=== PATIENT | female | born 1945 | race Caucasian/White ===

== ENCOUNTER 2023-04-28 08:20 | Outpatient (AMB) | payer BC, SELFPAY ==
--- NOTE | 2023-04-28 08:29 | A.OFFVIS_ITS ---
Intake Vital Signs 04/28/23 08:37 Height 5 ft 5 in Weight 140 lb BMI 23.3 BP 173/72 H Blood Pressure Location Lt brachial Position Sitting Pulse 62 Intake Visit Reasons: Irritable bowel syndrome Intake Note: Patient new patient for IBS. Patient cc: abdominal cramping, gassy, and constipation with some bloody BM. [employer] General Supervisor Required: No Accompanied by: Self / Same As Patient Allergies No Known Allergies Allergy (Verified 04/28/23 08:29) HPI Irritable bowel syndrome HPI Details 77-year-old female here for initial evaluation of IBS. She is referred by Nola Valladares of [facility] in [facility]. PMX Hypertension - she ?? High cholesterol - she ?? Arthrosclerotic aortic disease Arthrosclerosis of the renal arteries. 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 Colon polyps Osteoporosis Diabetic nephropathy Chronic kidney disease stage 2. Peripheral neuropathy * SURGICAL HISTORY Colonoscopy 11/10/2022-[facility]...? [facility] Appendectomy * ALLERGIES: NKDA * [employer] LABS: NONE IN OUR SYSTEM CT INCLUDED IN PCP NOTE 11/05/2022 IMPRESSION Significant arthrosclerotic calcifications.. There are significant calcifications at the origin of the left renal artery however there does appear to be good distal blood flow Evidence of old granulomatous disease. TODAY'S VISIT This problem has been for a couple of years. She will have a mucus d/c from her rectum at times. She will have CIC for 4-5 days, then she will move her bowels for a day or two. She will have hard stool followed by diarrhea. The CIC is more dominant. She has a lot of cramping. She was rx'ed bentyl but she only takes it when the cramps are very bad. It works when she has cramping. She will have a lot of bloating. The unpredictability of when she will have days that she can not leave the house is really interfering with her quality of life in her activities. SHE HAS HAD NO PRIOR testing except for colonoscopy done last year about which she was given no information. She does have a history of colon polyps that were tubular adenomas in the past with 5 year follow ups. There are no new medications before the onset of her symptoms and no new illnesses.She does not like to drink water, she drinks snapple iced tea and she does not eat much fiber. Her mother used to have bowel problems and her sister does. They do not talk much so she is uncertain exactly what kinds of problems they have. She tried Metamucil (or maybe miralax) and it did nothing. She will go home and verify which of the she has been on. She has also tried a variety of jaah-neb-fzotkop laxatives including senna, bisacodyl, MiraLax, and Colace and all these we do is give her severe cramping and not move her bowels sufficiently. I think will start her off on Linzess 145 micro g and titrate to affect her side effect. Will get some basic labs including thyroid to rule this out as a contributing factor. Also try to get records from her last colonoscopy. Return office visit in 2 weeks. [facility] Surgical History (Updated 04/28/23 @ 15:47 by SANAZ Sloan) History of section Hx of appendectomy Hx of colonoscopy Family History (Updated 04/28/23 @ 08:43 by Nancy Larsen) Brother Diabetes Father Heart attack Mother Lung cancer Social History (Updated 04/28/23 @ 08:30 by Nancy Larsen) Household Members: Spouse Alcohol intake: current Alcohol intake frequency: holidays/special occasions only Patient Tobacco Use Status: Former Tobacco user Tobacco use type: Cigarette Review of Systems Const Denies fatigue, Denies fever(s), Denies night sweats, Denies poor appetite and Denies weight loss Eyes Details: glasses Reports requires corrective lenses ENT Reports Normal hearing present, Denies dental pain, Denies dysphagia, Denies hearing loss, Denies mouth pain, Denies odynophagia, Denies throat swelling, Denies tongue swelling and Reports other (Dentition adequate) Card Reports no additional complaints Resp Reports no additional complaints GI Denies abdominal pain, Denies melena, Reports bloating, Denies hematochezia, Reports constipation, Reports GI cramping, Denies dysphagia, Denies excessive flatus, Denies early satiety, Denies heartburn, Reports diarrhea, Denies nausea, Denies odynophagia, Denies vomiting and Denies hematemesis Skin/Breast Reports dry skin, Denies pruritus, Denies lesions, Denies rash and Denies jaundice Neuro Reports Normal hearing present and Denies Abnormal speech present Endo Denies fatigue Aller/Immun Denies throat swelling and Denies tongue swelling Physical Exam Vital Signs: Last Vital Signs Pulse 62 04/28/23 08:37 BP 173/72 H 04/28/23 08:37 BMI result Body Mass Index 23.3 Const General: cooperative, no acute distress, well developed and well groomed Nutritional Appearance: average body habitus and well nourished Orientation/consciousness: oriented to person, oriented to place and oriented to time Limitations: No language barrier HEENT Head: Yes normocephalic and Yes atraumatic Eyes General: appearance normal, both eyes and all related structures Pupils: Equal, round and reactive pupils present Neck Neck: Yes normal visual inspection and Yes no lymphadenopathy Thyroid: Thyroid normal Resp Effort & Inspection: normal respiratory effort and able to speak in complete sentences Auscultation: clear to auscultation bilaterally Cardio Rate: regular rate Rhythm: regular rhythm Heart sounds: Normal, physiologic split S2 sound present Peripheral pulses: radial pulses present and posterior tibial pulses present GI Inspection: No distended and No Abdominal panniculus present Palpation (GI): Soft to palpation, nontender, no guarding, not rigid and No hepatosplenomegaly present Percussion: Yes normal to percussion Auscultation: normal bowel sounds Rectal Exam - Female: deferred Abdomen image: 1. surgical scar Skin General skin exam: no rashes or lesions noted, decreased turgor, dry skin, no jaundice, No spider nevi and no striae Rashes: no rashes Nails: normal Neuro General: oriented to person, oriented to place and oriented to time Cranial nerves: Yes Equal, round and reactive pupils present and Yes Normal hearing present Speech: No Abnormal speech present Extrem General: Yes normal to inspection, No clubbing, No cyanosis and No edema Psych Appearance: grossly normal and well kempt Mental Status: mental status grossly normal Speech and movement: Normal speech and movement present Affect: normal affect Attitude: cooperative Thought process: Normal thought process present and not confabulating Thought content: Normal thought content present Insight: Fair insight present (Psych) Judgement: Fair judgement present (Psych) Assessment & Plan Assessment & Plan (1) Irritable bowel syndrome with both constipation and diarrhea: Code(s): K58.2 - Mixed irritable bowel syndrome Plan: This problem has been for a couple of years. She will have a mucus d/c from her rectum at times. She will have CIC for 4-5 days, then she will move her bowels for a day or two. She will have hard stool followed by diarrhea. The CIC is more dominant. She has a lot of cramping. She was rx'ed bentyl but she only takes it when the cramps are very bad. It works when she has cramping. She will have a lot of bloating. The unpredictability of when she will have days that she can not leave the house is really interfering with her quality of life in her activities. SHE HAS HAD NO PRIOR testing except for colonoscopy done last year about which she was given no information. She does have a history of colon polyps that were tubular adenomas in the past with 5 year follow ups. There are no new medications before the onset of her symptoms and no new illnesses.She does not like to drink water, she drinks snapple iced tea and she does not eat much fiber. Her mother used to have bowel problems and her sister does. They do not talk much so she is uncertain exactly what kinds of problems they have. She tried Metamucil (or maybe miralax) and it did nothing. She will go home and verify which of the she has been on. She has also tried a variety of ksmk-hze-rnhmeum laxatives including senna, bisacodyl, MiraLax, and Colace and all these we do is give her severe cramping and not move her bowels sufficiently. I think will start her off on Linzess 145 micro g and titrate to affect her side effect. Will get some basic labs including thyroid to rule this out as a c ontributing factor. Also try to get records from her last colonoscopy. Return office visit in 2 weeks. Orders: Orders Comprehensive Met. Panel Today K58.2 - Mixed irritable bowel syndrome TSH reflex Free T4 Today K58.2 - Mixed irritable bowel syndrome Transglutaminase IgA Today K58.2 - Mixed irritable bowel syndrome Transglutaminase Ab IgG Today K58.2 - Mixed irritable bowel syndrome Pancreatic Elastase-1 Today K58.2 - Mixed irritable bowel syndrome C Reactive Protein Today K58.2 - Mixed irritable bowel syndrome Gliadin Ab Panel Today K58.2 - Mixed irritable bowel syndrome Medications: New sennosides (Senna Laxative) 17.2 mg (2 x 8.6 mg) PO BEDTIME 60 tabs 3RF K58.2 - Mixed irritable bowel syndrome Coding Level of Care Code New Pt Level 3 (42581) Diagnoses Irritable bowel syndrome with both constipation and diarrhea K58.2
[2023-04-28 08:37] VITALS: BP 173/72; PULSE 62; BMI 23.3
== END 2023-04-28 09:17 | disposition home or self-care (01) ==
PROVIDERS: PCP Internal Medicine; Visit Provider Nurse Practitioner
DX: K58.2 Mixed irritable bowel syndrome (principal)
CPT/HCPCS: 99203

== ENCOUNTER 2023-04-28 08:20 | Outpatient (REF) | payer MEDICARE, SELFPAY ==
[2023-04-28 11:12] LABS: Alanine Aminotransferase 30 U/L (0-31); Albumin Level 4.1 g/dL (3.5-5.0); Alkaline Phosphatase 102 U/L (39-117); Anion Gap 12 (12-20); Aspartate Amino Transferase 41 U/L (5-31); Bilirubin Total 0.4 mg/dL (0.0-1.0); Blood Urea Nitrogen 13 mg/dL (9-16); C Reactive Protein 0.35 mg/dL (< or = 0.50); Calcium 10.4 mg/dL (8.4-10.2); Carbon Dioxide 26 mmol/L (22-29); Chloride 104 mmol/L (96-108); Estimated Glomerular Filt Rate 53; Glucose Random 120 mg/dL (60-115); Potassium 4.3 mmol/L (3.3-5.1); Sodium 138 mmol/L (135-145)
[2023-04-28 11:32] LABS: TSH reflex Free T4 1.79 uIU/mL (0.32-4.0)
[2023-04-29 13:34] LABS: Transglutaminase Ab IgG <1.0 U/mL; Transglutaminase IgA <1.0 U/mL
[2023-04-29 14:23] LABS: Gliadin Deamidated IgA Ab <1.0 U/mL; Gliadin Deamidated IgG Ab <1.0 U/mL
== END 2023-04-28 08:21 | disposition home or self-care (01) ==
LOC: HO.LAB 08:20
PROVIDERS: PCP Internal Medicine; Visit Provider Nurse Practitioner
DX: K58.2 Mixed irritable bowel syndrome (principal)
CPT/HCPCS: 36415; 80053; 84443; 86140; 86258; 86364

== ENCOUNTER 2023-04-30 09:09 | Outpatient (REF) | payer MEDICARE, SELFPAY ==
[2023-05-08 17:53] LABS: Pancreatic Elastase-1 100 mcg/g
== END 2023-04-30 09:10 | disposition home or self-care (01) ==
LOC: HO.LNP 09:09
PROVIDERS: Visit Provider Nurse Practitioner
DX: K58.2 Mixed irritable bowel syndrome (principal)
CPT/HCPCS: 82656

== ENCOUNTER 2023-05-12 13:42 | Outpatient (AMB) | payer BC, SELFPAY ==
[2023-05-12 13:47] VITALS: BP 157/69; PULSE 62; BMI 24.7
--- NOTE | 2023-05-12 13:47 | A.OFFVIS_ITS ---
Intake Vital Signs 05/12/23 13:47 Height 5 ft 5 in Weight 148 lb 2.41 oz BMI 24.7 BP 157/69 H Blood Pressure Location Lt brachial Position Sitting Pulse 62 Intake Visit Reasons: Follow Up CIC Intake Note: Patient returns to in office visit today in follow up of CIC. CC:: Patient reports abdominal cramping, gassy, and nausea last Thursday. Information Assurance Analyst Required: No Accompanied by: Self / Same As Patient Allergies No Known Allergies Allergy (Verified 05/12/23 13:53) HPI Follow Up CIC HPI Details Assessment & Plan (1) Irritable bowel syndrome with both c onstipation and diarrhea: ?Code(s): K58.2 - Mixed irritable bowel syndrome ?Plan: This problem has been for a couple of years. She will have a mucus d/c from her rectum at times. She will have CIC for 4-5 days, then she will move her bowels for a day or two. She will have hard stool followed by diarrhea. The CIC is more dominant. She has a lot of cramping. She was rx'ed bentyl but she only takes it when the cramps are very bad. It works when she has cramping. She will have a lot of bloating.? The unpredictability of when she will have days that she can not leave the house is really interfering with her quality of life in her activities. SHE HAS HAD NO PRIOR testing except for colonoscopy done last year about which she was given no information.? She does have a history of colon polyps that were tubular adenomas in the past with 5 year follow ups.? There are no new medications before the onset of her symptoms and no new illnesses.She does not like to drink water, she drinks snapple iced tea and she does not eat much fiber. Her mother used to have bowel problems and her sister does.? They do not talk much so she is uncertain exactly what kinds of problems they have. She tried Metamucil (or maybe miralax) and it did nothing. She will go home and verify which of the she has been on.? She has also tried a variety of nvqz-umu-zgwkukr laxatives including senna, bisacodyl, MiraLax, and Colace and all these we do is give her severe cramping and not move her bowels sufficiently. I think will start her off on Linzess 145 micro g and titrate to affect her side effect.? Will get some basic labs including thyroid to rule this out as a contributing factor.? Also try to get records from her last colonoscopy. Return office visit in 2 weeks. ? ? ? Orders: Orders Comprehensive Met. Panel Today K58.2 - Mixed irri table bowel syndro me ? TSH reflex Free T4 Today K58.2 - Mixed irri table bowel syndro me ? Transglutaminase I gA Today K58.2 - Mixed irri table bowel syndro me ? Transglutaminase A b IgG Today K58.2 - Mixed irri table bowel syndro me ? Pancreatic Elastas e-1 Today K58.2 - Mixed irri table bowel syndro me ? C Reactive Protein Today K58.2 - Mixed irri table bowel syndro me ? Gliadin Ab Panel Today K58.2 - Mixed irri table bowel syndro me ? Medications: New Dsennosides (Senna Laxative) 17.2 mg (2 x 8.6 m g) PO BEDTIME 60 t abs 3RF K58.2 - Mixed irri table bowel syndro me ? LABS: Laboratory Tests 04/28/23 04/28/23 04/30/23 09:51 09:51 11:44 Estimated GFR 53 Calcium 10.4 H Total Bilirubin 0.4 AST 41 H ALT 30 Alkaline Phosphata se 102 C-Reactive Protein 0.35 TSH 1.79 Stool Pancreat Viri stase 100 L Tiss Transglutamin IgG <1.0 Tiss Transglutamin IgA <1.0 Anti-Gliadin IgG A b <1.0 Gliadin (Deamidat) IgA <1.0 TODAY'S VISIT She took the senna, 1 did not help, but 2 she was in the BR all day with soft stools and cramping. Not strong enough. Will progress to senna. Also possible EPI causing her gas and bloating, will start trial of creon 36 2 caps bid. JESU MCMAHON as she will be leaving in [facility] to visit family. [facility] Surgical History (Updated 04/28/23 @ 15:47 by SANAZ Sloan) History of section Hx of colonoscopy Hx of appendectomy Family History (Updated 04/28/23 @ 08:43 by Nancy Larsen) Brother Diabetes Father Heart attack Mother Lung cancer Social History (Updated 04/28/23 @ 08:30 by Nancy Larsen) Household Members: Spouse Alcohol intake: current Alcohol intake frequency: holidays/special occasions only Patient Tobacco Use Status: Former Tobacco user Tobacco use type: Cigarette Review of Systems Const Denies fatigue, Denies fever(s), Denies night sweats, Denies poor appetite and Denies weight loss Eyes Details: glasses Reports requires corrective lenses ENT Reports Normal hearing present, Denies dental pain, Denies dysphagia, Denies hearing loss, Denies mouth pain, Denies odynophagia, Denies throat swelling, Denies tongue swelling and Reports other (Dentition adequate) Card Reports no additional complaints Resp Reports no additional complaints GI Denies abdominal pain, Denies melena, Reports bloating, Denies hematochezia, Reports constipation, Denies GI cramping, Denies dysphagia, Reports excessive flatus, Denies early satiety, Denies heartburn, Reports diarrhea, Denies nausea, Denies odynophagia, Denies vomiting and Denies hematemesis Skin/Breast Denies pruritus, Denies lesions, Denies rash and Denies jaundice Neuro Reports Normal hearing present and Denies Abnormal speech present Endo Denies fatigue Aller/Immun Denies throat swelling and Denies tongue swelling Physical Exam Vital Signs: Last Vital Signs Pulse 62 05/12/23 13:47 BP 157/69 H 05/12/23 13:47 BMI result Body Mass Index 24.7 Const General: cooperative, no acute distress, well developed and well groomed Nutritional Appearance: average body habitus and well nourished Orientation/consciousness: oriented to person, oriented to place and oriented to time Limitations: No language barrier HEENT Head: Yes normocephalic and Yes atraumatic Eyes General: appearance normal, both eyes and all related structures Pupils: Equal, round and reactive pupils present Neck Neck: Yes normal visual inspection and Yes no lymphadenopathy Thyroid: Thyroid normal Resp Effort & Inspection: normal respiratory effort and able to speak in complete sentences Auscultation: clear to auscultation bilaterally Cardio Rate: regular rate Rhythm: regular rhythm Heart sounds: Normal, physiologic split S2 sound present Peripheral pulses: radial pulses present and posterior tibial pulses present GI Inspection: No distended and No Abdominal panniculus present Palpation (GI): Soft to palpation, nontender, no guarding, not rigid and No hepatosplenomegaly present Percussion: Yes normal to percussion Auscultation: normal bowel sounds Rectal Exam - Female: deferred Skin General skin exam: no rashes or lesions noted, turgor normal, skin not dry, no jaundice, No spider nevi and no striae Rashes: no rashes Nails: normal Neuro General: oriented to person, oriented to place and oriented to time Cranial nerves: Yes Equal, round and reactive pupils present and Yes Normal hearing present Speech: No Abnormal speech present Extrem General: Yes normal to inspection, No clubbing, No cyanosis and No edema Psych Appearance: grossly normal and well kempt Mental Status: mental status grossly normal Speech and movement: Normal speech and movement present Affect: normal affect Attitude: cooperative Thought process: Normal thought process present and not confabulating Thought content: Normal thought content present Insight: Fair insight present (Psych) Judgement: Fair judgement present (Psych) Assessment & Plan Assessment & Plan (1) Exocrine pancreatic insufficiency: Code(s): K86.81 - Exocrine pancreatic insufficiency Plan: She took the senna, 1 did not help, but 2 she was in the BR all day with soft stools and cramping. Not strong enough. Will progress to senna. Also possible EPI causing her gas and bloating, will start trial of creon 36 2 caps bid. ROV TBD as she will be leaving in [facility] to visit family. (2) Irritable bowel syndrome with both constipation and diarrhea: Code(s): K58.2 - Mixed irritable bowel syndrome Medications: New ciizjn-mesgtwou-zfzedsg 36,000-114,000- 180,000 unit (Creon) administer with meals and/or snacks 2 caps PO BID 120 caps 3RF K86.81 - Exocrine pancreatic insufficiency bisacodyl (Dulcolax (bisacodyl)) 10 mg (2 x 5 mg) PO BEDTIME 4 tabs 0RF 2 days Discontinued sennosides Discontinued Reason: Doctor's Order 17.2 mg (2 x 8.6 mg) PO BEDTIME 60 tabs 3RF K58.2 - Mixed irritable bowel syndrome Coding Level of Care Code Est Pt Level 3 (74713) Diagnoses Exocrine pancreatic insufficiency K86.81 Irritable bowel syndrome with both constipation and diarrhea K58.2
== END 2023-05-12 14:12 | disposition home or self-care (01) ==
PROVIDERS: PCP Internal Medicine; Visit Provider Nurse Practitioner
DX: K86.81 Exocrine pancreatic insufficiency (principal); K58.2 Mixed irritable bowel syndrome
CPT/HCPCS: 99213

== ENCOUNTER → 2023-05-12 13:42 | Outpatient (BNVA) | payer BC, SELFPAY | PROVIDERS: PCP Internal Medicine; Visit Provider Nurse Practitioner ==

== ENCOUNTER 2024-02-22 13:58 | Outpatient (AMB) | payer BC, SELFPAY ==
--- NOTE | 2024-02-22 14:12 | A.OFFVIS_ITS ---
Vital Signs 02/22/24 14:15 Height 5 ft 5 in Weight 156 lb 1.396 oz BMI 26.0 BP 144/58 H Blood Pressure Location Rt brachial Position Sitting Pulse 70 Pulse Source Pulse Oximeter Intake Visit Reasons: Type 2 DM/lvm Intake Note: New patient present today for T2DM, referred by PCP. Patient receives Carissa 3 supplies through: Pharmacy Last Diabetic Eye exam: Due for an exam, approx 2 years Last Podiatry Visit: Does not see a Accountancy Professor Random Glucose: 249 mg/dl HgA1C: 8.1% Cigarette Making Machine Catcher Required: No Accompanied by: Self / Same As Patient Allergies No Known Allergies Allergy (Verified 02/22/24 14:16) Medication List - Last Reconciled 02/22/24 by Yahaira Kwan PA-C atorvastatin 40 mg PO DAILY blood-glucose sensor (FreeStyle Carissa 3 Sensor device) As directed insulin aspart U-100 (Novolog U-100 Insulin aspart) subcut insulin glargine (Lantus Solostar U-100 Insulin) 17 units subcut lactulose 20 grams (30 mL) PO BEDTIME [id number] 36,000-114,000- 180,000 unit (Creon) 2 caps PO BID losartan 25 mg PO DAILY sertraline 25 mg PO DAILY trazodone 200 mg PO BEDTIME PRN HPI HPI Type 2 DM/lvm: Details: Patient is a 78-year-old female who presents today for a new patient visit regarding her type 1 diabetes. She has a significant past medical history of anxiety, depression, hyperlipidemia, hypertension, CKD stage 3, type 1 diabetes, exocrine pancreatic insufficiency and osteoporosis. Endo: She is a type 1 diabetic diagnosed about 40 years ago. She did follow with the [facility] when she was initially diagnosed. She states that she was previously following with [facility] the endocrinology but was not seen in more than 1 year and told that she could no longer be a patient there. She has been having issues with her insurance and was previously on the omnipod pump and liked this. She states that her insurance older it would be 200 dollars to have this in she cannot afford that. She is on lantus 17 units and novolog sliding scale. Her A1c today is 8.1. Her CGM download shows usage 97% with a average glucose of 170 and a 35% variable 62% in range, 25% high, 12% very high and 1% low. Her cholesterol is managed with atorvastatin. She is on an Arb. She sta malik that reduce renal function is her only complication associated with her diabetes. She has not noticed peripheral neuropathy. She does check her feet regularly. She does not follow with a shift foreman. She is overdue for an ophthalmology exam and has an appointment pending but denies any history of retinopathy. -most of her hives are directly related to lunch and dinner. Her sliding scale is 150 no novolog 150-200 2 units 201-250 4 units 251-300 6 units 301-350 8 units 351-400 10 units CV: Bp today is a 144/58. She is on losartan 25 mg. We discussed that her blood pressure is elevated today but she states at home they are normal and it is normally elevated in the doctor's office. Her doctor often has to recheck her blood pressure multiple times in the office. She denies any chest pains or shortness of breath. Cannot recall her last cholesterol test are like. She is on atorvastatin 40 mg. No myalgias. [facility] Medical History (Updated 02/22/24 @ 14:47 by Yahaira Kwan PA-C) Dyslipidemia Type 1 diabetes mellitus with diabetic nephropathy, with long-term current use of insulin Surgical History History of section Hx of colonoscopy Hx of appendectomy Family History Brother Diabetes Father Heart attack Mother Lung cancer Social History Household Members: Spouse Alcohol intake: current Alcohol intake frequency: holidays/special occasions only Patient Tobacco Use Status: Former Tobacco user Tobacco use type: Cigarette Physical Exam Vital Signs: Last Vital Signs Pulse 70 02/22/24 14:15 BP 144/58 H 02/22/24 14:15 BMI result Body Mass Index 26.0 Const Orientation/consciousness: patient oriented x3 HEENT Ears: hearing grossly normal bilaterally Neck Thyroid: Thyroid normal Lymphatic: no lymphadenopathy noted Resp Auscultation: clear to auscultation bilaterally Cardio Rate: regular rate Rhythm: regular rhythm Heart sounds: S1 normal heart sound present and S2 normal heart sound present Skin General skin exam: no rashes or lesions noted Neuro General: patient oriented x3, gait normal and no focal motor deficits Extrem Other: DP pulses 2+. sensation to monofilament and vibratory intact. General: Yes normal to inspection and Yes capillary refill normal Results AMB Hemoglobin A1c AMB Hemoglobin A1c 8.1 % Last Edit by LEONARD Cooper on 02/22/24 14:33 Results Reviewed Results Reviewed: Laboratory Tests 04/28/23 09:51 Sodium 138 Potassium 4.3 Chloride 104 Carbon Dioxide 26 Anion Gap 12 BUN 13 Creatinine 1.01 Estimated GFR 53 Random Glucose 120 H Calcium 10.4 H Total Bilirubin 0.4 AST 41 H ALT 30 Alkaline Phosphatase 102 C-Reactive Protein 0.35 TSH 1.79 Assessment & Plan Assessment & Plan (1) Type 1 diabetes mellitus with diabetic nephropathy, with long-term current use of insulin: Code(s): E10.21 - Type 1 diabetes mellitus with diabetic nephropathy Category: Medical Plan: I will increase the sliding scale. Continue the Lantus. I have referred her to our health promotion educator to discuss pumps as that is her goal. She will reach out to her insurance to see about coverage. (2) Chronic kidney disease, stage 2 (mild): Code(s): N18.2 - Chronic kidney disease, stage 2 (mild) Category: Medical Plan: Advised to avoid NSAIDs. Will monitor. Does not follow with Nephrology. (3) Hypertension: Code(s): I10 - Essential (primary) hypertension Category: Medical Qualifiers: Hypertension type: primary hypertension Qualified Code(s): I10 - Essential (primary) hypertension Plan: Elevated today above goal. Patient will monitor her blood pressures at home and will have a short-term follow-up with her PCP. (4) Dyslipidemia: Code(s): E78.5 - Hyperlipidemia, unspecified Category: Medical Plan: Lipids and LFTs ordered. Plan She will contact me if she to be seen sooner otherwise three-month follow-up with Dr. Banegas. Patient understands and agrees with the plan. Orders: Orders AMB Hemoglobin A1c Today E10.9 - Type 1 diabetes mellitus without complications Microalbumin, Random (w Creat) Today E10.21 - Type 1 diabetes mellitus with diabetic nephropathy, E78.5 - Hyperlipidemia, unspecified, I10 - Essential (primary) hypertension, N18.2 - Chronic kidney disease, stage 2 (mild) Comprehensive [place]. Panel Fast Today E10.21 - Type 1 diabetes mellitus with diabetic nephropathy, E78.5 - Hyperlipidemia, unspecified, I10 - Essential (primary) hypertension, N18.2 - Chronic kidney disease, stage 2 (mild) Hemoglobin A1c Today E10.21 - Type 1 diabetes mellitus with diabetic nephropathy, E78.5 - Hyperlipidemia, unspecified, I10 - Essential (primary) hypertension, N18.2 - Chronic kidney disease, stage 2 (mild) Lipid Panel Today E10.21 - Type 1 diabetes mellitus with diabetic nephropathy, E78.5 - Hyperlipidemia, unspecified, I10 - Essential (primary) hypertension, N18.2 - Chronic kidney disease, stage 2 (mild) Coding Level of Care Code New Pt Level 4 (17542) Complex EM visit Add On G2211 Diagnoses Type 1 diabetes mellitus with diabetic nephropathy, with long-term current use of insulin E10.21 Chronic kidney disease, stage 2 (mild) N18.2 Primary hypertension I10 Hypertension type: primary hypertension Dyslipidemia E78.5
[2024-02-22 14:15] VITALS: BP 144/58; PULSE 70; BMI 26.0
[2024-02-22 14:29] LABS: Glucose, Whole Blood 249 mg/dL (60-115)
== END 2024-02-22 15:06 | disposition home or self-care (01) ==
PROVIDERS: PCP Internal Medicine; Visit Provider Physician Assistant
DX: E10.21 Type 1 diabetes mellitus with diabetic nephropathy (principal); I12.9 Hypertensive chronic kidney disease with stage 1 through stage 4 chronic kidney disease, or unspecified chronic kidney disease; N18.2 Chronic kidney disease, stage 2 (mild); E78.5 Hyperlipidemia, unspecified; E10.9 Type 1 diabetes mellitus without complications
CPT/HCPCS: 99204

== ENCOUNTER → 2024-02-22 13:58 | Outpatient (BNVA) | payer BC, SELFPAY | PROVIDERS: PCP Internal Medicine; Visit Provider Physician Assistant | DX: E10.22 Type 1 diabetes mellitus with diabetic chronic kidney disease (principal); E10.21 Type 1 diabetes mellitus with diabetic nephropathy; I12.9 Hypertensive chronic kidney disease with stage 1 through stage 4 chronic kidney disease, or unspecified chronic kidney disease; E78.5 Hyperlipidemia, unspecified; N18.2 Chronic kidney disease, stage 2 (mild) | CPT/HCPCS: 82947; 83036 ==

== ENCOUNTER 2024-02-29 10:15 | Outpatient (REF) | payer BC, SELFPAY ==
[2024-02-29 11:42] LABS: Estimated Average Glucose 177 mg/dL; Hemoglobin A1c % 7.8 % (<6.0)
[2024-02-29 12:16] LABS: Creatinine Urine 32.02 mg/dL; Microalbumin Urine < 5.0 mg/L
[2024-02-29 12:22] LABS: Alanine Aminotransferase 20 U/L (0-31); Albumin Level 3.9 g/dL (3.5-5.0); Alkaline Phosphatase 93 U/L (39-117); Anion Gap 12 (12-20); Aspartate Amino Transferase 29 U/L (5-31); Bilirubin Total 0.5 mg/dL (0.0-1.0); Blood Urea Nitrogen 14 mg/dL (9-16); Calcium 9.8 mg/dL (8.4-10.2); Carbon Dioxide 25 mmol/L (22-29); Chloride 103 mmol/L (96-108); Cholesterol 196 mg/dL (<200); Estimated Glomerular Filt Rate 59; Glucose Fasting 168 mg/dL (60-99); HDL Cholesterol 98 mg/dL (>40); LDL Cholesterol Calculated 87 mg/dL (<100); Potassium 4.4 mmol/L (3.3-5.1); Sodium 136 mmol/L (135-145); Total Protein 7.6 g/dL (6.5-8.0); Triglycerides 58 mg/dL (<150)
== END 2024-02-29 10:16 | disposition home or self-care (01) ==
LOC: HO.WFDLDS 10:15
PROVIDERS: Visit Provider Physician Assistant
DX: E78.5 Hyperlipidemia, unspecified (principal); E10.21 Type 1 diabetes mellitus with diabetic nephropathy; N18.2 Chronic kidney disease, stage 2 (mild); I10 Essential (primary) hypertension
CPT/HCPCS: 36415; 80053; 80061; 82043; 82570; 83036

== ENCOUNTER 2024-03-07 09:39 | Outpatient (AMB) | payer BC, SELFPAY ==
--- NOTE | 2024-03-07 10:27 | A.OFFVIS_ITS ---
Intake Intake Visit Reasons: with Judith to discuss pumps/CONFIRMED Civil Engineering Project Manager Required: No Accompanied by: Self / Same As Patient Allergies No Known Allergies Allergy (Verified 02/22/24 14:16) HPI Comprehensive Diabetes Asmnt Most Recent Diabetes Results: Microalb/Creat Ratio TNP 02/29/24 Cholesterol 196 mg/dL (<200) 02/29/24 HDL Cholesterol 98 mg/dL (>40) 02/29/24 Triglycerides 58 mg/dL (<150) 02/29/24 Creatinine 0.92 mg/dL (0.5-1.4) 02/29/24 Blood Urea Nitrogen 14 mg/dL (9-16) 02/29/24 Sodium 136 mmol/L (135-145) 02/29/24 Potassium 4.4 mmol/L (3.3-5.1) 02/29/24 Chloride 103 mmol/L (96-108) 02/29/24 Carbon Dioxide 25 mmol/L (22-29) 02/29/24 Calcium 9.8 mg/dL (8.4-10.2) 02/29/24 AST 29 U/L (5-31) 02/29/24 ALT 20 U/L (0-31) 02/29/24 Total Protein 7.6 g/dL (6.5-8.0) 02/29/24 Albumin 3.9 g/dL (3.5-5.0) 02/29/24 [facility] Medical History (Updated 02/22/24 @ 14:47 by Yahaira Kwan PA-C) Dyslipidemia Type 1 diabetes mellitus with diabetic nephropathy, with long-term current use of insulin Surgical History History of section Hx of colonoscopy Hx of appendectomy Family History Brother Diabetes Father Heart attack Mother Lung cancer Social History Household Members: Spouse Alcohol intake: current Alcohol intake frequency: holidays/special occasions only Patient Tobacco Use Status: Former Tobacco user Tobacco use type: Cigarette Assessment & Plan Assessment & Plan (1) Type 1 diabetes mellitus with diabetic nephropathy, with long-term current use of insulin: Code(s): E10.21 - Type 1 diabetes mellitus with diabetic nephropathy Plan: Pump Assessment: Type of DM: Type 1 Dx at age: In her 32 Previous DKA: Denies Current Insulin Rx: MDI Lantus 17 units daily Novolog S/S 150 no novolog 150-200 4 units 201-250 6 units 251-300 8 units 301-350 10 units 351-400 12 units Patient takes insulin as prescribed: yes Patient? checks BG freestyle Carissa 2 Downloaded meter today? Yes Patient's average glucose for the past 2 weeks 155 mg/dL Above target 25% At target 66% Below target 2% Encourage patient to take 2 units of insulin before meals when glucose is within target. Instructed patient not to use sliding scale post meal if she is trying to corre ct high blood sugar and not eating Patient? reports glycemic control as: Good Most recent Hgb A1C: 7.8% February 2024 Frequency of low BG: Several times a week Low BG treatment: Fruit juice Frequency of high BG: daily Does patient check Ketones? No Reviewed with patient the rules on how to test for ketones, requested prescription for ketone strips be sent to patient's pharmacy Has pt been on a pump in the past? Yes, Omnipod Hanna Reviewed insulin pump basics today with Patient. Explained pros and cons of insulin pumps. Showed pt various pumps, infusion sets, and cgms currently available. Reviewed need to wear pump 24/7 and need to change infusion set every 3 days. Also stressed importance of frequent BG checks, 4x daily minimum or use pump that is integrated with CGM.? TDD:35 Patient demonstrated motivation for continued insulin pump education and understands the need to complete education prior to starting insulin pump for best outcome. Will follow up for continued education. Next visit will include review of Advanced Carb Counting. Message sent to both [employer] and [employer] regarding out of pocket cost of insulin pump Portions of this note were created using voice recognition software, please excuse any words or phrases that may have been misinterpreted. Patient Instructions: DIABETES PROBLEMS HOMECARE INSTRUCTIONS? for High Blood Sugar and When to Test for Ketones Hyperglycemia is the technical term for high blood glucose (blood sugar). High blood sugar happens when the body has too little insulin or when the body can't use insulin properly. What causes hyperglycemia? A number of things can cause hyperglycemia: * If you have type 1, you may not have given yourself enough insulin. ? If you have type 2, your body may have enough insulin, but it is not as effective as it should be. * You ate more than planned or exercised less than planned. * You have stress from an illness, such as a cold or flu. * You have other stress, such as family conflicts or school or dating problems. How to lower your blood sugar level. ? Take medications as directed by physician. ? Drink extra water or noncaffeinated, nonsugared drinks to prevented hydration. ? Exercise if you are not sick However, if your blood sugar is above 250 mg/dl, check your urine for ketones. If you have ketones, do not exercise Exercising when ketones are present may make your blood sugar level go even higher. You'll need to work with your doctor to find the safest way for you to lower your blood sugar level. Regularly check blood sugar or urine for sugar and acetone during illness. Diabetic ketoacidosis (DKA) Is serious condition that can lead to diabetic coma (passing out for a long time) or even . When your cells don't get the glucose they need for energy, your body begins to burn fat for energy, which produces ketones. Ketones are chemicals that the body creates when it breaks down fat to use for energy. The body does this when it doesn?t have enough insulin to use glucose, the body?s normal source of energy. When ketones build up in the blood, they make it more acidic. They are a warning sign that your diabetes is out of control or that you are getting sick. Symptoms of Diabetic Ketoacidosis (DKA) ? DKA usually develops slowly. But when vomiting occurs, this life- threatening condition can develop in a few hours. Early symptoms include the following: ? Thirst or a very dry mouth ? Frequent urination ? High blood glucose (blood sugar) levels ? High levels of ketones in the urine ? Then, other symptoms appear: ? Constantly feeling tired ? Dry or flushed skin ? Nausea, vomiting, or abdominal pain ? (Vomiting can be caused by many illnesses, not just ketoacidosis. If vomiting continues for more than 2 hours, contact your health care provider.) ? Difficulty breathing ? Fruity odor on breath ? A hard time paying attention, or confusion When should you test for ketones? It is advisable to check for ketones under the following conditions when: Your blood glucose is higher than 250mg/dl. Feeling nauseated, throwing up, or have pains in your abdominal region. Have a cold or flu. Have general body fatigue. Feel thirsty or have a very dry mouth. Have flushed skin. Have a fruity breath or a hard time breathing. You feel perplexed or in fog. How to Test Urine for Ketones You can detect ketones with a simple urine test using a test strip, similar to a blood testing strip. Ask your health care provider when and how you should test for ketones. Many experts advise to check your urine for ketones when your blood glucose is more than 250 mg/dl. When you are ill (when you have a cold or the flu, for example), check for ketones every 4 to 6 hours. And check every 4 to 6 hours when your blood sugar is more than 250 mg/dl. Also, check for ketones when you have any symptoms of DKA. How to lower your blood sugar level. ? Take medications as directed by physician. ? Drink extra water or noncaffeinated, nonsugared drinks to prevented hydration. ? Exercise if you are not sick However, if your blood sugar is above 250 mg/dl, check your urine for ketones. If you have ketones, do not exercise Exercising when ketones are present may make your blood sugar level go even higher. You'll need to work with your doctor to find the safest way for you to lower your blood sugar level. Regularly check blood sugar or urine for sugar and acetone during illness Coding Level of Care Code Est Pt Level 1 (47213) Diagnoses Type 1 diabetes mellitus with diabetic nephropathy, with long-term current use of insulin E10.21
== END 2024-03-07 10:31 | disposition home or self-care (01) ==
PROVIDERS: PCP Internal Medicine; Visit Provider Registered Nurse Diabetes Educator
DX: E10.21 Type 1 diabetes mellitus with diabetic nephropathy (principal)

== ENCOUNTER → 2024-03-07 09:39 | Outpatient (BNVA) | payer BC, SELFPAY | PROVIDERS: PCP Internal Medicine; Visit Provider Registered Nurse Diabetes Educator | DX: Z46.81 Encounter for fitting and adjustment of insulin pump (principal); E10.21 Type 1 diabetes mellitus with diabetic nephropathy | CPT/HCPCS: 99211 ==

== ENCOUNTER 2024-03-28 12:45 | Outpatient (AMB) | payer BC, SELFPAY ==
--- NOTE | 2024-03-28 13:41 | MHC.AMDMED ---
Intake Intake Visit Reasons: 60 CARB COUNT/CONFIRMED Obstetrics Gynecology Physician Required: No Accompanied by: Self / Same As Patient Allergies No Known Allergies Allergy (Verified 02/22/24 14:16) HPI Comprehensive Diabetes Asmnt Most Recent Diabetes Results: Microalb/Creat Ratio TNP 02/29/24 Cholesterol 196 mg/dL (<200) 02/29/24 HDL Cholesterol 98 mg/dL (>40) 02/29/24 Triglycerides 58 mg/dL (<150) 02/29/24 Creatinine 0.92 mg/dL (0.5-1.4) 02/29/24 Blood Urea Nitrogen 14 mg/dL (9-16) 02/29/24 Sodium 136 mmol/L (135-145) 02/29/24 Potassium 4.4 mmol/L (3.3-5.1) 02/29/24 Chloride 103 mmol/L (96-108) 02/29/24 Carbon Dioxide 25 mmol/L (22-29) 02/29/24 Calcium 9.8 mg/dL (8.4-10.2) 02/29/24 AST 29 U/L (5-31) 02/29/24 ALT 20 U/L (0-31) 02/29/24 Total Protein 7.6 g/dL (6.5-8.0) 02/29/24 Albumin 3.9 g/dL (3.5-5.0) 02/29/24 [facility] Medical History (Updated 02/22/24 @ 14:47 by Yahaira Kwan PA-C) Dyslipidemia Type 1 diabetes mellitus with diabetic nephropathy, with long-term current use of insulin Surgical History History of section Hx of colonoscopy Hx of appendectomy Family History Brother Diabetes Father Heart attack Mother Lung cancer Social History Household Members: Spouse Alcohol intake: current Alcohol intake frequency: holidays/special occasions only Patient Tobacco Use Status: Former Tobacco user Tobacco use type: Cigarette Assessment & Plan Assessment & Plan (1) Type 1 diabetes mellitus with diabetic nephropathy, with long-term current use of insulin: Code(s): E10.21 - Type 1 diabetes mellitus with diabetic nephropathy Plan: Carb Counting Basic Patient presents for appointment carbohydrate counting education. Reviewed the basic principles of carbohydrate counting.? Insulin to carb ratio, and insulin sensitivity factor calculated based on rule of 450 for insulin to carb ratio, and rule of 1500 for insulin sensitivity factor. Instructed patient on the importance of accurate calculation of the amount of carbs per meal for optimal glucose control Reviewed how to calculate mealtime bolus with insulin to carb ratio Reviewed how to calculate correction dose with insulin sensitivity factor Patient's TDD estimate 35 Units Insulin to Carbohydrate ratio: 1:13 Correction factor: 1:43 Patient given healthy plate handout, for resource for carbohydrate counting Encourage patient to fill out food logs, estimating carbohydrates at meals, noting glucose number prior to meal, and how many units of insulin taken prior to meals Pt able to calculated needed insulin based on estimated carbohydrate content Boluscalc selene downloaded on to patient's cell phone Reviewed with patient how to calculate for meals and corrections using Boluscalc selene Patient will also need to transition from Carissa 3 sensor to Dexcom G7 sensor, patient will call certified lactation educator when she puts on last Carissa 3 sensor so new prescription can be sent to patient's pharmacy Instructed patient that there may need to be adjustment to insulin to carb ratio and sensitivity factor based on blood glucose trends. reviewed patient's glucose data from Carissa 3 sensor average glucose for the past 14 days 152 mg/dL patient above target 29% patient at target 68% patient below target 3% patient is experiencing overnight hypoglycemia, recommended to patient she decrease Lantus 17 units to Lantus 14 units in 2 or 3 days if still experiencing overnight hypoglycemia contact certified lactation educator for further adjustment reviewed with patient how to use rule of 15s to treat hypoglycemia patient reports she keeps a small can of Coke next to her bed to treat overnight hypoglycemia patient also carries crackers and small can of Coke in her purse instructed patient not to use food that has protein or fat, such as peanut butter crackers to treat hypoglycemia. after treating hypoglycemia with Coke, use peanut butter crackers as snack to keep blood sugar stable Portions of this note were created using voice recognition software, please excuse any words or phrases that may have been misinterpreted. Patient Instructions: Reduce Lantus to 14 unit daily If still experiencing overnight hypoglycemia contact certified lactation educator Coding Level of Care Code Est Pt Level 1 (95655) Diagnoses Type 1 diabetes mellitus with diabetic nephropathy, with long-term current use of insulin E10.21
== END 2024-03-28 13:47 | disposition home or self-care (01) ==
PROVIDERS: PCP Internal Medicine; Visit Provider Registered Nurse Diabetes Educator
DX: E10.21 Type 1 diabetes mellitus with diabetic nephropathy (principal)

== ENCOUNTER → 2024-03-28 12:45 | Outpatient (BNVA) | payer BC, SELFPAY | PROVIDERS: PCP Internal Medicine; Visit Provider Registered Nurse Diabetes Educator | DX: E10.21 Type 1 diabetes mellitus with diabetic nephropathy (principal) | CPT/HCPCS: 99211 ==

== ENCOUNTER 2024-05-11 14:36 | Outpatient (AMB) | payer BC, SELFPAY ==
--- NOTE | 2024-05-11 14:41 | MHC.AMDMED ---
Intake Intake Visit Reasons: Tandem Allergies No Known Allergies Allergy (Verified 02/22/24 14:16) HPI Comprehensive Diabetes Asmnt Most Recent Diabetes Results: Microalb/Creat Ratio TNP 02/29/24 Cholesterol 196 mg/dL (<200) 02/29/24 HDL Cholesterol 98 mg/dL (>40) 02/29/24 Triglycerides 58 mg/dL (<150) 02/29/24 Creatinine 0.92 mg/dL (0.5-1.4) 02/29/24 Blood Urea Nitrogen 14 mg/dL (9-16) 02/29/24 Sodium 136 mmol/L (135-145) 02/29/24 Potassium 4.4 mmol/L (3.3-5.1) 02/29/24 Chloride 103 mmol/L (96-108) 02/29/24 Carbon Dioxide 25 mmol/L (22-29) 02/29/24 Calcium 9.8 mg/dL (8.4-10.2) 02/29/24 AST 29 U/L (5-31) 02/29/24 ALT 20 U/L (0-31) 02/29/24 Total Protein 7.6 g/dL (6.5-8.0) 02/29/24 Albumin 3.9 g/dL (3.5-5.0) 02/29/24 [facility] Medical History (Updated 02/22/24 @ 14:47 by Yahaira Kwan PA-C) Dyslipidemia Type 1 diabetes mellitus with diabetic nephropathy, with long-term current use of insulin Surgical History History of section Hx of colonoscopy Hx of appendectomy Family History Brother Diabetes Father Heart attack Mother Lung cancer Social History Household Members: Spouse Alcohol intake: current Alcohol intake frequency: holidays/special occasions only Patient Tobacco Use Status: Former Tobacco user Tobacco use type: Cigarette Assessment & Plan Assessment & Plan (1) Type 1 diabetes mellitus with diabetic nephropathy, with long-term current use of insulin: Code(s): E10.21 - Type 1 diabetes mellitus with diabetic nephropathy Plan: Patient presents for pump training for T-Slim X2 pump and CGM training today. The following topics were reviewed today: -Pump therapy basic concepts: Basal/bolus, insulin to carb ratio, correction factor, insulin on board -Device settings: Bluetooth/mobile connection (if applicable), correct date and time, sound volume -CGM settings(if integrated system): CGM graft views and trend arrows, alerts and alarms, Start new sensor ??? High Alert: 200 mg/dl ??? Low Alert: 70 mg/dl Insulin delivery settings Program insulin to carb ratio, correction factor, target blood glucose, suspend or resume insulin delivery, bolus limit and basal limit settings Instructed patient to only use room temperature insulin, how to load cartridge or fill pod, with insulin. Fill tubing and cannula (if applicable) Inserting infusion set or starting pod Troubleshooting after starting new pod or inserting new insulin set: Occlusion, adhesive tape sensitivity, redness Check BG 2 hours after site change Safety information: Importance of a backup plan, for manual injections, proper prescriptions and emergency supplies ketone strips, and rules for testing for ketones Patient was able to insert insulin set today without difficulty. Patient understands the basic concepts of pump therapy, how to give insulin for meals and snacks, how to troubleshoot for hyper and hypoglycemia. Setting verified by [facility] Basal rate(s) (units/hour) : 12 AM? to 12 AM? 0.5 units / hr Bolus setting Insulin Carbohydrate Ratio (s) 12 AM? to 12 AM?? 1:17 Correction Factor / Sensitivity Factor 12 AM? to 12 AM? 1:58 Active Insulin Time:? 5 hours Target(s): 12 AM? to 12 AM? 110 mg/dL Patient will follow up with [facility] as instructed Patient will contact [facility] with questions or concerns, patient given IT number to support in any technical issues related to insulin pump Portions of this note were created using voice recognition software, please excuse any words or phrases that may have been misinterpreted. Medications: Discontinued insulin aspart U-100 (Novolog U-100 Insulin aspart) Discontinued Reason: Insurance Denied up to 40 units daily by continuous insulin pump subcutaneously daily; 30 days 20 mL 6RF E10.21 - Type 1 diabetes mellitus with diabetic nephropathy Patient Instructions: Patient will follow-up with school vocational educator in 1 week Coding Level of Care Code Est Pt Level 1 (53920) Diagnoses Type 1 diabetes mellitus with diabetic nephropathy, with long-term current use of insulin E10.21
== END 2024-05-11 16:34 | disposition home or self-care (01) ==
PROVIDERS: PCP Internal Medicine; Visit Provider Registered Nurse Diabetes Educator
DX: E10.21 Type 1 diabetes mellitus with diabetic nephropathy (principal)

== ENCOUNTER → 2024-05-11 14:36 | Outpatient (BNVA) | payer BC, SELFPAY | PROVIDERS: PCP Internal Medicine; Visit Provider Registered Nurse Diabetes Educator | DX: Z46.81 Encounter for fitting and adjustment of insulin pump (principal); E10.21 Type 1 diabetes mellitus with diabetic nephropathy | CPT/HCPCS: 99211 ==

== ENCOUNTER 2024-05-19 07:47 | Outpatient (AMB) | payer BC, SELFPAY ==
--- NOTE | 2024-05-19 08:47 | MHC.AMDMED ---
Intake Intake Visit Reasons: 60 MIN Sales Enablement Consultant Required: No Accompanied by: Self / Same As Patient Allergies No Known Allergies Allergy (Verified 02/22/24 14:16) HPI Comprehensive Diabetes Asmnt Most Recent Diabetes Results: Microalb/Creat Ratio TNP 02/29/24 Cholesterol 196 mg/dL (<200) 02/29/24 HDL Cholesterol 98 mg/dL (>40) 02/29/24 Triglycerides 58 mg/dL (<150) 02/29/24 Creatinine 0.92 mg/dL (0.5-1.4) 02/29/24 Blood Urea Nitrogen 14 mg/dL (9-16) 02/29/24 Sodium 136 mmol/L (135-145) 02/29/24 Potassium 4.4 mmol/L (3.3-5.1) 02/29/24 Chloride 103 mmol/L (96-108) 02/29/24 Carbon Dioxide 25 mmol/L (22-29) 02/29/24 Calcium 9.8 mg/dL (8.4-10.2) 02/29/24 AST 29 U/L (5-31) 02/29/24 ALT 20 U/L (0-31) 02/29/24 Total Protein 7.6 g/dL (6.5-8.0) 02/29/24 Albumin 3.9 g/dL (3.5-5.0) 02/29/24 [facility] Medical History (Updated 02/22/24 @ 14:47 by Yahaira Kwan PA-C) Dyslipidemia Type 1 diabetes mellitus with diabetic nephropathy, with long-term current use of insulin Surgical History History of section Hx of colonoscopy Hx of appendectomy Family History Brother Diabetes Father Heart attack Mother Lung cancer Social History Household Members: Spouse Alcohol intake: current Alcohol intake frequency: holidays/special occasions only Patient Tobacco Use Status: Former Tobacco user Tobacco use type: Cigarette Assessment & Plan Assessment & Plan (1) Type 1 diabetes mellitus with diabetic nephropathy, with long-term current use of insulin: Code(s): E10.21 - Type 1 diabetes mellitus with diabetic nephropathy Plan: Patient presents for pump training for T-Slim X2 pump and CGM training today. The following topics were reviewed today: -CGM settings(if integrated system): CGM graft views and trend arrows, alerts and alarms, Start new sensor ??? High Alert: 200 mg/dl ??? Low Alert: 70 mg/dl Patient was unable to load cartridge and connect Dexcom G7 sensor to insulin pump. She arrived at appointment off insulin pump therapy, patient reported she would resumed taking Lantus 15 units daily, and using NovoLog prior to meals as prescribed Reviewed with patient to only use room temperature insulin, how to load cartridge or fill pod, with insulin. Fill tubing and cannula Inserting infusion set or starting pod Troubleshooting after starting new pod or inserting new insulin set: Occlusion, adhesive tape sensitivity, redness Check BG 2 hours after site change In addition we reviewed process in how to connect T slim insulin pump with Dexcom G7 sensor We also set up T connect selene on patient's smart phone and connected to insulin pump Tandem Password: [email or web address] Safety information: Importance of a backup plan, for manual injections, proper prescriptions and emergency supplies ketone strips, and rules for testing for ketones Patient was able to insert insulin set today without difficulty. Patient understands the basic concepts of pump therapy, how to give insulin for meals and snacks, how to troubleshoot for hyper and hypoglycemia. Setting verified by [facility], no changes made to insulin pump settings at today's visit Basal rate(s) (units/hour) : 12 AM? to 12 AM? 0.5 units / hr Bolus setting Insulin Carbohydrate Ratio (s) 12 AM? to 12 AM?? 1:17 Correction Factor / Sensitivity Factor 12 AM? to 12 AM? 1:58 Active Insulin Time:? 5 hours Target(s): 12 AM? to 12 AM? 110 mg/dL Patient will follow up with [facility] as instructed Patient will contact [facility] with questions or concerns, patient given IT number to support in any technical issues related to insulin pump Coding Level of Care Code Est Pt Level 1 (77499) Diagnoses Type 1 diabetes mellitus with diabetic nephropathy, with long-term current use of insulin E10.21
== END 2024-05-19 08:52 | disposition home or self-care (01) ==
PROVIDERS: PCP Internal Medicine; Visit Provider Registered Nurse Diabetes Educator
DX: E10.21 Type 1 diabetes mellitus with diabetic nephropathy (principal)

== ENCOUNTER → 2024-05-19 07:47 | Outpatient (BNVA) | payer BC, SELFPAY | PROVIDERS: PCP Internal Medicine; Visit Provider Registered Nurse Diabetes Educator | DX: Z46.81 Encounter for fitting and adjustment of insulin pump (principal); E10.21 Type 1 diabetes mellitus with diabetic nephropathy | CPT/HCPCS: 99211 ==

== ENCOUNTER 2024-05-25 08:48 | Outpatient (AMB) | payer BC, SELFPAY ==
--- NOTE | 2024-05-25 08:21 | A.OFFVIS_ITS ---
Vital Signs 05/25/24 08:49 Height 5 ft 5 in Weight 156 lb 8.451 oz BMI 26.0 Blood Pressure Location Rt brachial Position Sitting Pulse Source Pulse Oximeter Intake Visit Reasons: DM/LVM Intake Note: Patient patient present today for a follow-up on Type 2 Diabetes Mellitus/Insulin Pump: Patient receives Carissa 3 supplies through: Pharmacy Last Diabetic Eye exam: 05/25/2024, normal exam. Last Podiatry Visit: Does not see a Nc Manager Random Glucose: 281 mg/dL, Today Most Recent HgA1C: 7.8%, 02/29/2024 Wire Steward Required: No Accompanied by: Self / Same As Patient Allergies No Known Allergies Allergy (Verified 02/22/24 14:16) HPI Comments Details: [age] YO female with type 1 diabetes is seen in follow up. She was seen by hema carlin in [place] on 02/22/2024 as an initial consult. She has been seen several times since then by Judith QUISPE for re-initiation of pump therapy with the tandem pump. She had some difficulty reinserting the site and has resumed basal bolus therapy 1 week ago. She has tried several reinsertions but has had difficulty. Initially diagnosed with T1DM at approximately age 38. Previous RX: Lantus 17 units 150 no novolog 150-200 2 units 201-250 4 units 251-300 6 units 301-350 8 units 351-400 10 units Has been off pump 4 days ago. Has had difficulty with insertion. Able to fill c artridge and to prime. Restarted bolus insulin but did not restart Lantus. Glucose has been in the 200's with some readings 300. Most recent A1C:8.1% 02/22/24 Reports low sugars [never]. Treats lows with . Checks sugar after to ensure it is rising. Follows the rule of 15's. Family history of autoimmunity in [] Has pancreatic insufficiency: on Creon Has eyes checked yearly, last eye exam [], [] retinopathy. [Denies] neuropathy, last foot exam today self care Nephropathy, on ARB 02/29/24: Microalbumin <5.0 eGFR 59 Has HLD, on statin. Last LDL 87 measured on 02/29/24 Denies history of CAD. Has had diabetes education. Diet/Carb counting:has had instruction Weight: stable [Denies] prior episodes of DKA. [Denies] prior severe episodes of hypoglycemia requiring help or hospi talization. [facility] screen Unable to calculate: no CBC Fibrosis-4 (Fib-4) Index for liver fibrosis (calculated on lab work done: 04/06) [ ] points Advanced fibrosis [ ] Approximate Fibrosis stage Annette [ ] *Use with caution in patients <35 or >65 years old, as the score has been shown to be less reliable in these patients. Prior Imaging [] Action Plan: [] rescreen two years from date of screening labs[ ] DAMION: BNP [facility] Medical History (Updated 02/22/24 @ 14:47 by Yahaira Kwan PA-C) Dyslipidemia Type 1 diabetes mellitus with diabetic nephropathy, with long-term current use of insulin Surgical History History of section Hx of colonoscopy Hx of appendectomy Family History Brother Diabetes Father Heart attack Mother Lung cancer Social History Household Members: Spouse Alcohol intake: current Alcohol intake frequency: holidays/special occasions only Patient Tobacco Use Status: Former Tobacco user Tobacco use type: Cigarette Physical Exam Absence of Cushingoid features. Absence of acromegalic features. Neck exam reveals nl size thyroid about 15 gms. No thyroid nodules palpable. No carotid bruits present. Lungs CTA. Heart S1 S2, Reg R/R. No M/R/ G. Skin exam reveals absence of vitiligo or acanthosis nigricans. Abdominal exam reveals Soft NT/ND with NA BS. No organomegaly present. Const Other: Absence of Cushingoid features. Absence of acromegalic features. Neck exam reveals nl size thyroid about 15 gms. No thyroid nodules palpable. Nl S1 S2, Reg R/R. No M/R G. Skin exam reveals absence of vitiligo or acanthosis nigricans. Extrem Other: Visual exam of foot performed. No ulcerations or open lesions. No onchomycosis, no callouses.Pulses 2 + distally. Sensation intact to monofilament exam. Vibratory sensation sensed 10 seconds in right, 10 seconds in left with 128 Hz tuning fork Results Reviewed Results Reviewed: Laboratory Tests 04/28/23 02/29/24 02/29/24 09:51 10:19 10:27 Potassium 4.4 Creatinine 0.92 Estimated GFR 59 AST 29 ALT 20 Triglycerides 58 Cholesterol 196 LDL Cholesterol, Calc 87 HDL Cholesterol 98 TSH 1.79 Urine Creatinine 32.02 Urine Microalbumin < 5.0 Assessment & Plan Assessment & Plan (1) Type 1 diabetes mellitus with diabetic nephropathy, with long-term current use of insulin: Code(s): E10.21 - Type 1 diabetes mellitus with diabetic nephropathy Category: Medical Plan: 79-year-old Type 1 diabetic who recently re-initiated insulin pump therapy 3 weeks ago and has been having difficulty with insertion of cannula. She will meet with extension educator today for retraining and reinsertion. She was advised with her next home insertion of the weekend that she could contact the company if she is having any difficulty. We also reviewed backup pump failure or inability to use pump plan which would include Lantus 17 units once daily pus h sliding scale short-acting. I will see the patient back in 4 weeks' time to review numbers on pump. DAMION ordered today. A1c at next visit and we will also order BNP at that time to screen for CHF, AST platelets to screen for fatty liver. Orders: Orders US DAMION complete Today E10.21 - Type 1 diabetes mellitus with diabetic nephropathy Coding Level of Care Code Est Pt Level 3 (57023) Complex EM visit Add On G2211 Diagnoses Type 1 diabetes mellitus with diabetic nephropathy, with long-term current use of insulin E10.21 Time Spent (min) 20 Comment Time spent reviewing labs/provider notes, face to face, chart doc
[2024-05-25 08:49] VITALS: BMI 26.0
[2024-05-25 09:04] LABS: Glucose, Whole Blood 281 mg/dL (60-115)
== END 2024-05-25 10:06 | disposition home or self-care (01) ==
PROVIDERS: PCP Internal Medicine; Visit Provider Nurse Practitioner Adult Health
DX: E10.21 Type 1 diabetes mellitus with diabetic nephropathy (principal)
CPT/HCPCS: 99213

== ENCOUNTER → 2024-05-25 08:48 | Outpatient (BNVA) | payer BC, SELFPAY | PROVIDERS: PCP Internal Medicine; Visit Provider Nurse Practitioner Adult Health | DX: Z46.81 Encounter for fitting and adjustment of insulin pump (principal); E10.21 Type 1 diabetes mellitus with diabetic nephropathy | CPT/HCPCS: 82947; 99211 ==

== ENCOUNTER 2024-05-25 09:15 | Outpatient (AMB) | payer MEDICARE, SELFPAY ==
--- NOTE | 2024-05-25 09:51 | A.OFFVIS_ITS ---
Intake Intake Visit Reasons: Pump issues Herbarium Curator Required: No Accompanied by: Spouse Allergies No Known Allergies Allergy (Verified 02/22/24 14:16) HPI Comprehensive Diabetes Asmnt Most Recent Diabetes Results: Microalb/Creat Ratio TNP 02/29/24 Cholesterol 196 mg/dL (<200) 02/29/24 HDL Cholesterol 98 mg/dL (>40) 02/29/24 Triglycerides 58 mg/dL (<150) 02/29/24 Creatinine 0.92 mg/dL (0.5-1.4) 02/29/24 Blood Urea Nitrogen 14 mg/dL (9-16) 02/29/24 Sodium 136 mmol/L (135-145) 02/29/24 Potassium 4.4 mmol/L (3.3-5.1) 02/29/24 Chloride 103 mmol/L (96-108) 02/29/24 Carbon Dioxide 25 mmol/L (22-29) 02/29/24 Calcium 9.8 mg/dL (8.4-10.2) 02/29/24 AST 29 U/L (5-31) 02/29/24 ALT 20 U/L (0-31) 02/29/24 Total Protein 7.6 g/dL (6.5-8.0) 02/29/24 Albumin 3.9 g/dL (3.5-5.0) 02/29/24 [facility] Medical History (Updated 02/22/24 @ 14:47 by Yahaira Kwan PA-C) Dyslipidemia Type 1 diabetes mellitus with diabetic nephropathy, with long-term current use of insulin Surgical History History of section Hx of colonoscopy Hx of appendectomy Family History Brother Diabetes Father Heart attack Mother Lung cancer Social History Household Members: Spouse Alcohol intake: current Alcohol intake frequency: holidays/special occasions only Patient Tobacco Use Status: Former Tobacco user Tobacco use type: Cigarette Assessment & Plan Assessment & Plan (1) Type 1 diabetes mellitus with diabetic nephropathy, with long-term current use of insulin: Code(s): E10.21 - Type 1 diabetes mellitus with diabetic nephropathy Plan: Patient presents for pump training for T-Slim X2 pump and CGM training today. The following topics were reviewed today: -CGM settings(if integrated system): CGM graft views and trend arrows, alerts and alarms, Start new sensor ??? High Alert: 200 mg/dl ??? Low Alert: 70 mg/dl Patient still struggling to load cartridge and connect Dexcom G7 sensor to insulin pump. Reviewed how to load cartridge, prepare insulin delivery set an insert into abdomen. Reconnected patient is Dexcom G7 to T slim Suggested to patient she try [employer] infusion set, which may be less complicated. Message sent to [employer] rep to see if we can get sample insulin delivery sets Reviewed with patient , how to load cartridge or fill pod, with insulin. Fill tubing and cannula Inserting infusion set or starting pod Troubleshooting after starting new pod or inserting new insulin set: Occlusion, adhesive tape sensitivity, redness Check BG 2 hours after site change Tandem Password: [email or web address] Safety information: Importance of a backup plan, for manual injections, proper prescriptions and emergency supplies ketone strips, and rules for testing for ketones Patient was able to insert insulin set today without difficulty. Patient understands the basic concepts of pump therapy, how to give insulin for meals and snacks, how to troubleshoot for hyper and hypoglycemia. Setting verified by [facility], no changes made to insulin pump settings at today's visit Basal rate(s) (units/hour) : 12 AM? to 12 AM? 0.5 units / hr Bolus setting Insulin Carbohydrate Ratio (s) 12 AM? to 12 AM?? 1:17 Correction Factor / Sensitivity Factor 12 AM? to 12 AM? 1:58 Active Insulin Time:? 5 hours Target(s): 12 AM? to 12 AM? 110 mg/dL Patient will follow up with [facility] as instructed Patient will contact [facility] with questions or concerns, patient given IT number to support in any technical issues related to insulin pump Recommended to patient if she is having difficulty inserting next infusion set, she can call [employer] customer support or watch [employer] videos on YouTube Patient Instructions: Patient will follow-up with paid search manager in 2 weeks Coding Level of Care Code Est Pt Level 1 (94512) Diagnoses Type 1 diabetes mellitus with diabetic nephropathy, with long-term current use of insulin E10.21
== END 2024-05-25 10:06 | disposition home or self-care (01) ==
LOC: HO.ENCR 09:15
PROVIDERS: PCP Internal Medicine; Visit Provider Registered Nurse Diabetes Educator
DX: E10.21 Type 1 diabetes mellitus with diabetic nephropathy (principal)

== ENCOUNTER 2024-06-13 09:14 | Outpatient (REF) | payer MEDICARE, SELFPAY ==
--- NOTE | ~2024-06-13 | US_ITS ---
EXAMINATION: Noninvasive assessment of the arteries of both lower extremities to include a single level PVR exam and ANKLE BRACHIAL INDICES (ABIs). CLINICAL INFORMATION: Peripheral vascular disease with history of diabetes mellitus type 1 with diabetic neuropathy TECHNIQUE: The ankle/brachial indices of the distal posterior tibial and the dorsalis pedis arteries were obtained of the lower extremity arterial system bilaterally; along with pressures and pulse volume recordings at the ankle level. The study was performed at rest. COMPARISON: None FINDINGS: 1. ANKLE-BRACHIAL INDICES: RIGHT: 1.02 LEFT: 1.02 2. ANKLE PVR WAVEFORMS: RIGHT: Normal LEFT: Normal US/US DAMION complete IMPRESSION: Right leg: Normal ankle brachial index and PVR waveform Left leg: Normal ankle brachial index and PVR waveform Electronically signed by: Hany Gandhi MD 06/15/2024 02:06 PM EDT
== END 2024-06-13 09:15 | disposition home or self-care (01) ==
LOC: HO.US 09:14
PROVIDERS: PCP Internal Medicine; Visit Provider Nurse Practitioner Adult Health
DX: E10.21 Type 1 diabetes mellitus with diabetic nephropathy (principal)
CPT/HCPCS: 93923

== ENCOUNTER 2024-06-28 12:45 | Outpatient (AMB) | payer MEDICARE, SELFPAY ==
--- NOTE | 2024-06-28 12:59 | MHC.OFFVIS ---
Vital Signs 06/28/24 13:01 Height 5 ft 5 in Weight 154 lb 8.705 oz BMI 25.7 BP 148/60 H Blood Pressure Location Lt brachial Position Sitting Pulse 72 Pulse Source Pulse Oximeter Intake Visit Reasons: DM Intake Note: Patient presents today for D1MT follow up visit. Last Diabetic Eye exam: 06/2024 Last Podiatry Visit: Doesn't have one Random Glucose: 310 mg/dl HgA1c:8.2% Self Pay Representative Required: No Accompanied by: Spouse Allergies No Known Allergies Allergy (Verified 06/28/24 13:07) Medication List - Last Reconciled 06/28/24 by Cali Banegas MD atorvastatin 40 mg PO DAILY blood-glucose meter,continuous (Dexcom G7 [employer] Handler) Use daily As directed to monitor blood sugars blood-glucose sensor (Dexcom G7 Sensor device) Use daily As directed to monitor blood sugars blood-glucose sensor ([employer] Carissa 3 Sensor device) As directed insulin glargine (Lantus Solostar U-100 Insulin) 17 units subcut insulin syringe-needle U-100 (BD Insulin Syringe Ultra-Fine) As directed up to qid for pump failure or glucose correction 4 times daily when pump fails or if needing to check sensor for correct numbers lactulose 20 grams (30 mL) PO BEDTIME [id number] 36,000-114,000- 180,000 unit (Creon) 2 caps PO BID losartan 25 mg PO DAILY Novolog U-100 Insulin aspart (insulin aspart U-100) up to 40 units daily subcutaneously daily; via continuous insulin pump 30 days NS sertraline 25 mg PO DAILY trazodone 200 mg PO BEDTIME PRN urine glucose-ketones test Use As directed HPI Comments Details: 79 YO female with type 1 diabetes is seen in follow up. She was seen by Yahaira CH on 02/22/2024 as an initial consult. And then Cuca Mcclure APRN in 05/25/24 for most recent fup Serafin is here today with her her HPI from prior visits She has been seen several times since then by Judith QUISPE for re-initiation of pump therapy with the tandem pump. She had some difficulty reinserting the site. She has tried several reinsertions but has had difficulty. Now bacl on Tandem, todays visit was set up emergenctlt because blood sugar running in the 300s. 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 No dyuria No SOB Tested negative for COVID when she went into the ED yers. Currently on tandem T slim pump. Basal rate is 0.5 units/hour and insulin: Carbohydrate ratio is 01:17 with target 110 correction factor 1-58. Insulin use Total daily insulin dose is 28 units. CGM interpretation Review of Dexcom download shows average reading to be 197. The sensor is being used 100% of the time. 53% range with 46% hyperglycemia and less than 1% hypoglycemic. Pen shows point of cares rising after lunch and after dinner Reports low sugars [never]. Treats lows with . Checks sugar after to ensure it is rising. Follows the rule of 15's. Family history of autoimmunity in [] Has pancreatic insufficiency: on Creon Has eyes checked yearly, last eye exam [], [] retinopathy. [Denies] neuropathy, last foot exam today self care Nephropathy, on ARB 02/29/24: Microalbumin <5.0 eGFR 59 Has HLD, on statin. Last LDL 87 measured on 02/29/24 Denies history of CAD. Has had diabetes education. Diet/Carb counting:has had instruction Weight: stable [Denies] prior episodes of DKA. [Denies] prior severe episodes of hypoglycemia requiring help or hospitalization. [facility] screen Unable to calculate: no CBC Fibrosis-4 (Fib-4) Index for liver fibrosis (calculated on lab work done: 04/06) [ ] points Advanced fibrosis [ ] Approximate Fibrosis stage Annette [ ] *Use with caution in patients <35 or >65 years old, as the score has been shown to be less reliable in these patients. Prior Imaging [] Action Plan: [] rescreen two years from date of screening labs[ ] DAMION: BNP PFSH Medical History (Updated 02/22/24 @ 14:47 by Yahaira Kwan PA-C) Dyslipidemia Type 1 diabetes mellitus with diabetic nephropathy, with long-term current use of insulin Surgical History History of section Hx of colonoscopy Hx of appendectomy Family History Brother Diabetes Father Heart attack Mother Lung cancer Social History Household Members: Spouse Alcohol intake: current Alcohol intake frequency: holidays/special occasions only Patient Tobacco Use Status: Former Tobacco user Tobacco use type: Cigarette Physical Exam Vital Signs: Last Vital Signs Pulse 72 06/28/24 13:01 BP 148/60 H 06/28/24 13:01 BMI result Body Mass Index 25.7 Absence of Cushingoid features. Absence of acromegalic features. Neck exam reveals nl size thyroid about 15 gms. No thyroid nodules palpable. No carotid bruits present. Lungs CTA. Heart S1 S2, Reg R/R. No M/R/ G. Skin exam reveals absence of vitiligo or acanthosis nigricans. Abdominal exam reveals Soft NT/ND with NA BS. No organomegaly present. Extrem Other: Visual exam of foot performed. No ulcerations or open lesions. No onchomycosis, no callouses.Pulses 2 + distally. Sensation intact to monofilament exam. Vibratory sensation sensed 10 seconds in right, 10 seconds in left with 128 Hz tuning fork Results AMB Hemoglobin A1c AMB Hemoglobin A1c 8.2 % Last Edit by LEONARD Rogers on 06/28/24 13:26 Results Reviewed Results Reviewed: Laboratory Last Values Glucose (Clinic) 310 mg/dL (60-115) H 06/28/24 13:11 Hgb A1c (Clinic) 8.2 % (4.0-6.0) H 06/28/24 13:25 Assessment & Plan Assessment & Plan (1) Type 1 diabetes mellitus with diabetic nephropathy, with long-term current use of insulin: Code(s): E10.21 - Type 1 diabetes mellitus with diabetic nephropathy Category: Medical Plan: This is a 79-year-old white female with a history of type 1 diabetes with fair glycemic control on a tandem T-slim pump with known microvascular complications namely micro albuminuria Plan is to Orders: Orders AMB Hemoglobin A1c Today E10.21 - Type 1 diabetes mellitus with diabetic nephropathy, Z13.9 - Encounter for screening, unspecified Coding Diagnoses Type 1 diabetes mellitus with diabetic nephropathy, with long-term current use of insulin E10.21
[2024-06-28 13:01] VITALS: BP 148/60; PULSE 72; BMI 25.7
[2024-06-28 13:15] LABS: Glucose, Whole Blood 310 mg/dL (60-115)
--- NOTE | 2024-06-28 13:45 | MHC.OFFVIS ---
Vital Signs 06/28/24 13:01 06/28/24 13:52 Height 5 ft 5 in Weight 154 lb 8.705 oz BMI 25.7 25.7 BP 148/60 H Blood Pressure Location Lt brachial Position Sitting Pulse 72 Pulse Source Pulse Oximeter Intake Visit Reasons: DM Allergies No Known Allergies Allergy (Verified 06/28/24 13:07) Medication List - Last Reconciled 06/28/24 by Cali Banegas MD atorvastatin 40 mg PO DAILY blood-glucose meter,continuous (Dexcom G7 Beam Racker) Use daily As directed to monitor blood sugars blood-glucose sensor (Dexcom G7 Sensor device) Use daily As directed to monitor blood sugars blood-glucose sensor (Frest MarketingStyle Carissa 3 Sensor device) As directed insulin glargine (Lantus Solostar U-100 Insulin) 17 units subcut insulin syringe-needle U-100 (BD Insulin Syringe Ultra-Fine) As directed up to qid for pump failure or glucose correction 4 times daily when pump fails or if needing to check sensor for correct numbers lactulose 20 grams (30 mL) PO BEDTIME [id number] 36,000-114,000- 180,000 unit (Creon) 2 caps PO BID losartan 25 mg PO DAILY Novolog U-100 Insulin aspart (insulin aspart U-100) up to 40 units daily subcutaneously daily; via continuous insulin pump 30 days NS sertraline 25 mg PO DAILY trazodone 200 mg PO BEDTIME PRN urine glucose-ketones test Use As directed HPI Comments Details: 79 YO female with type 1 diabetes is seen in follow up. She uses Tandem tslim insulin pump . This visit was made emergently as she has been runnind in the 300s for her blood sugars. Prior HPI She was seen by DIMA CH on 02/22/2024 as an initial consult. Last ghislaine Cucamer Mcclure 05/25/24 She has been seen several times since then by Judith QUISPE for re-initiation of pump therapy with the tandem pump. She had some difficulty reinserting the site and has resumed pump therapy now. She has tried several reinsertions but has had difficulty. Initially diagnosed with T1DM at approximately age 38. Now on Tandem Tslim inslun pump with Dexcom CGM Continuous glucose sensor Interpretation from June 15 to June 28. Average glucose : 197 Standard deviation: 89 mg/dL % readings above target: 46% % readings in hypoglycemic range: 0.4% % readings in target: 53% Low alert is set at: 80 High alert is set at: 200 Blood glucose patterns observed: Over the past 2 days, patient has been running hyperglycemic in the 300s. Requiring multiple boluses of correction. No hypoglycemic episodes. Prior to that she was above target range in the afternoon and evening time mostly after her meals consistent with requiring more for prandial coverage. Current pump settings Basal rate 0.5 units/hour Correction factor 01:58 Carb ratio 01:17 Target blood glucose 110 Active insulin time 5 hours Insulin usage Average daily dose: 30.4 units Basal: 47%: 14.17 units Bolus: 53%: 15.25 units She is in control IQ 31% of the time Manual 69% of the time Previous RX whens he was on basal bolus Lantus 17 units 150 no novolog 150-200 2 units 201-250 4 units 251-300 6 units 301-350 8 units 351-400 10 units POC glucose today 310 mg/dl POC A1c 8.2 % A1c 7 .8 % in February 2024 . Compliactions No kidney disease Last eye visit 3 weeks ago : no retinopathy Mild neuropathy No heart attack or stroke Nephropathy, on ARB 02/29/24: Microalbumin <5.0 eGFR 59 Has HLD, on statin. Last LDL 87 measured on 02/29/24 Denies history of CAD. Has had diabetes education. Diet/Carb counting:has had instruction Treats lows with . Checks sugar after to ensure it is rising. Follows the rule of 15's. Family history of autoimmunity in [] Has pancreatic insufficiency:not on Creon anymore Weight: stable No recent episodes of DKA . . [Denies] prior severe episodes of hypoglycemia requiring help or hospitalization. [facility] screen Unable to calculate: no CBC Fibrosis-4 (Fib-4) Index for liver fibrosis (calculated on lab work done: 04/06) [ ] points Advanced fibrosis [ ] Approximate Fibrosis stage Annette [ ] *Use with caution in patients <35 or >65 years old, as the score has been shown to be less reliable in these patients. Prior Imaging [] Action Plan: [] rescreen two years from date of screening labs[ ] Physical exam General: sitting comfortably in no acute distress HEENT: normocephalic/atraumatic, moist oral mucosa Neck: supple, symmetrical, no thyromegaly Cardiac: normal heart sounds Pulm: normal breath sounds B/L, no added breath sounds Abd: not distended, no tenderness Extremities: no edema, no signs of myxedema Neuro: AAO x3, Speech: normal, no facial droop, moving all 4 extremities [facility] Medical History (Updated 02/22/24 @ 14:47 by Yahaira Kwan PA-C) Dyslipidemia Type 1 diabetes mellitus with diabetic nephropathy, with long-term current use of insulin Surgical History History of section Hx of colonoscopy Hx of appendectomy Family History Brother Diabetes Father Heart attack Mother Lung cancer Social History Household Members: Spouse Alcohol intake: current Alcohol intake frequency: holidays/special occasions only Patient Tobacco Use Status: Former Tobacco user Tobacco use type: Cigarette Physical Exam Vital Signs: Last Vital Signs Pulse 72 06/28/24 13:01 BP 148/60 H 06/28/24 13:01 BMI result Body Mass Index 25.7 Results AMB Hemoglobin A1c AMB Hemoglobin A1c 8.2 % Last Edit by LEONARD Rogers on 06/28/24 13:26 UR Ketone Dip UR Ketone Dip 15 Last Edit by LEONARD Rogers on 06/28/24 13:58 Quality Reporting (2019) Adult ([facility] 138/2/22/69) Body Mass Index: 25.7 Results Reviewed Results Reviewed: Laboratory Last Values Glucose (Clinic) 310 mg/dL (60-115) H 06/28/24 13:11 Hgb A1c (Clinic) 8.2 % (4.0-6.0) H 06/28/24 13:25 Laboratory Tests 04/28/23 02/22/24 02/29/24 09:51 14:28 10:19 Creatinine 0.92 Glucose (Clinic) Hgb A1c (Clinic) 8.1 H Hemoglobin A1c % 7.8 H Triglycerides 58 Cholesterol 196 LDL Cholesterol, Calc 87 HDL Cholesterol 98 TSH 1.79 Urine Microalbumin Tiss Transglutamin IgG <1.0 Tiss Transglutamin IgA <1.0 Anti-Gliadin IgG Ab <1.0 Gliadin (Deamidat) IgA <1.0 02/29/24 06/28/24 06/28/24 10:27 13:11 13:25 Creatinine Glucose (Clinic) 310 H Hgb A1c (Clinic) 8.2 H Hemoglobin A1c % Triglycerides Cholesterol LDL Cholesterol, Calc HDL Cholesterol TSH Urine Microalbumin < 5.0 Tiss Transglutamin IgG Tiss Transglutamin IgA Anti-Gliadin IgG Ab Gliadin (Deamidat) IgA Assessment & Plan Assessment & Plan (1) Type 1 diabetes mellitus with diabetic nephropathy, with long-term current use of insulin: Code(s): E10.21 - Type 1 diabetes mellitus with diabetic nephropathy Category: Medical Plan: Patient with a history of type 1 diabetes mellitus, diagnosed at age 38, with complication of mild neuropathy, tandem T slim insulin pump with Dexcom G6. Here for an emergent visit today because her blood sugars have been elevated in the 300s. She seems to be bolusing herself correctly 15 minutes before, and is entering carbohydrates. In the past she has had issues with the insulin pump to 2 insertion sites, on exam today her insulin sites look unremarkable with erythema or inflammation. She feels well. We tested her urine ketones in the clinic today, which were normal at 15 mg/dL. However blood sugars have been consistently elevated in the 300s in the past 48 hours. She does not have any stigmata of infection. She feels well overall. I have emphasized to her importance of maintaining her hydration. Her A1c today is 8.2% which is worsened from her last A1c of 7.8% in February 2024. At this time she definitely needs better postprandial coverage so I will change her carb ratio from 01:17 to 1:15. Given persistently elevated blood sugars in the 300s, I will go up on her basal rate from 0.5 to 0.65 as her total daily doses 30 units, and if fever to give her about 50% basal she should be on around 15 units of basal which would come close to 0.65 units/hour. Though she is coming back for follow up tomorrow, if her blood sugars improve, she might benefit from more time intervals on her pump with less basal rate overnight and more basal rate during the day. I will also increase her correction factor from 1: 58 to 1: 55. This is based on her total daily dose. Plan: -insulin pump settings: New Basal rate: 0.65 Correction factor 01:55 Carb ratio 1:15 Coming back for follow up tomorrow, might benefit from more intervals on her pump with less basal rate overnight but for now we need her blood sugars to improve -verified that she has backup Lantus at home: Advised her that if her blood sugars rise to 300s at night with no improvement and she starts feeling unwell test for urine ketones if has moderate ketones, switch to basal bolus regimen as recommended below: Give lantus 15 units for back up if pump fails tonight meaning your blood sugars stay above 300 continuously , take the pump off And then switch to novolog with meals <100 no novolog 100- 150 : 1 unit 150-200 2 units 201-250 4 units 251-300 6 units 301-350 8 units 351-400 10 units Drinks lots of water If you start having nausea, vomiting, cannot keep food down , please go to ED Revised rule of 15 for hypoglycemia. -Maintain good hydration Plan I spent 30 minutes in reviewing the record, seeing the patient and documenting in the medical record. Orders: Orders AMB Hemoglobin A1c Today E10.21 - Type 1 diabetes mellitus with diabetic nephropathy, Z13.9 - Encounter for screening, unspecified AMB Ketone Urine Dipstick Today E10.21 - Type 1 diabetes mellitus with diabetic nephropathy Medications: New pen needle, diabetic (BD Ultra-Fine Mini Pen Needle) As directed 100 ea 2RF Patient Instructions: Give lantus 15 units for back up if pump fails tonight meaning your blood sugars stay above 300 continuously , take the pump off And then switch to novolog with meals <100 no novolog 100- 150 : 1 unit 150-200 2 units 201-250 4 units 251-300 6 units 301-350 8 units 351-400 10 units Drinks lots of water If you start having nausea, vomiting, cannot keep food down , please go to ED Rule of 15 Treatment for Hypoglycemia (Low blood sugar) If your blood glucose is low (70 and below)*, follow the steps below to treat: Eat or drink something from the list below equal to 15 grams of carbohydrate (carb). Rest for 15 minutes Re-check your blood glucose. If it is still low, (below 70), repeat step 1 above. ? If your next meal is more than an hour away, you will need to eat one carbohydrate choice as a snack to keep your blood glucose from going low again. ?If you can't figure out why you have low blood glucose, call your healthcare provider, as your medicine may need to be adjusted. ?Always carry something with you to treat an insulin reaction. Use food from the list below. ? Foods equal to One Carbohydrate Choice (15 grams of carbohydrate): 3 Glucose ?tablets or 4 Dextrose tablets 4 ounces of fruit juice 5-6 ounces (about 1/2 can) of regular soda such as Coke or Pepsi ? 7-8 gummy or regular Life Savers ? 1 Tbsp. of sugar or jelly NOTE: If your blood sugar is less than 50, double the portion above for a total of 30 gm. ?Carbohydrate. ? Follow meal plan of 45-60 g of consistent carbohydrates at 3 meals each day and 15 g of carbohydrate at 1-2 snacks each day. Coding Level of Care Code Est Pt Level 4 (39362) Complex EM visit Add On G2211 Diagnoses Type 1 diabetes mellitus with diabetic nephropathy, with long-term current use of insulin E10.21 Time Spent (min) 30
[2024-06-28 13:52] VITALS: BMI 25.7
== END 2024-06-28 14:16 | disposition home or self-care (01) ==
PROVIDERS: PCP Internal Medicine; Visit Provider Student in an Organized Health Care Education/Training Program
DX: Z13.9 Encounter for screening, unspecified (principal); E10.21 Type 1 diabetes mellitus with diabetic nephropathy
CPT/HCPCS: 99214; G2211

== ENCOUNTER → 2024-06-28 12:45 | Outpatient (BNVA) | payer MEDICARE, SELFPAY | PROVIDERS: PCP Internal Medicine; Visit Provider Student in an Organized Health Care Education/Training Program | DX: E10.21 Type 1 diabetes mellitus with diabetic nephropathy (principal); Z79.4 Long term (current) use of insulin; Z96.41 Presence of insulin pump (external) (internal) | CPT/HCPCS: 81002; 82947; 83036; 99212 ==

== ENCOUNTER 2024-06-29 09:53 | Outpatient (AMB) | payer MEDICARE, SELFPAY ==
--- NOTE | 2024-06-29 08:14 | A.OFFVIS_ITS ---
Vital Signs 06/29/24 10:03 Height 5 ft 5 in Weight 154 lb 5.177 oz BMI 25.7 BP 132/68 Blood Pressure Location Rt brachial Position Sitting Pulse 75 Pulse Source Pulse Oximeter Intake Visit Reasons: DM/PENDING, TO SEE 06/28 Intake Note: Patient patient present today for a follow-up on Type 2 Diabetes Mellitus/Insulin Pump: Patient receives Carissa 3 supplies through: Pharmacy Last Diabetic Eye exam: 05/25/2024, normal exam. Last Podiatry Visit: Does not see a Engineering Secretary Most Recent HgA1C: 8.2%, 06/28/2024 Random Glucose: 148 mg/dL, Today Online Advertising Analyst Required: No Accompanied by: Self / Same As Patient Allergies No Known Allergies Allergy (Verified 06/28/24 13:07) Medication List - Last Reconciled 06/29/24 by Cuca Rich NP atorvastatin 40 mg PO DAILY blood-glucose meter,continuous (Dexcom G7 Computer Hardware Designer) Use daily As directed to monitor blood sugars blood-glucose sensor (Dexcom G7 Sensor device) Use daily As directed to monitor blood sugars blood-glucose sensor (FreeStyle Carissa 3 Sensor device) As directed glucagon 3 mg/actuation (Baqsimi) 3 mg intranasal ONCE PRN 30 days insulin glargine (Lantus Solostar U-100 Insulin) 17 units (0.17 mL) subcut ONCE PRN 30 days MDD 17 units insulin syringe-needle U-100 (BD Insulin Syringe Ultra-Fine) As directed up to qid for pump failure or glucose correction 4 times daily when pump fails or if needing to check sensor for correct numbers lactulose 20 grams (30 mL) PO BEDTIME [id number]-yhovxaag-cyevebg 36,000-114,000- 180,000 unit (Creon) 2 caps PO BID losartan 25 mg PO DAILY Novolog U-100 Insulin aspart (insulin aspart U-100) up to 40 units daily subc utaneously daily; via continuous insulin pump 30 days NS pen needle, diabetic (BD Ultra-Fine Mini Pen Needle) As directed pen needle, diabetic (BD Ultra-Fine Romina Pen Needle) As directed qid prn pump failure sertraline 25 mg PO DAILY trazodone 200 mg PO BEDTIME PRN urine glucose-ketones test Use As directed HPI Comments Details: 79 YO female with type 1 diabetes is seen in follow up. She was seen yesterday by Dr. Gilliland for pump adjustment as her sugars were running in the 300 range. She has been seen several times by Judith QUISPE as she had some difficulty reinserting the pump with set changes and had been recommended to trail a True steel set. She has been able to insert several new sets and did not need to change to the true steel. Since her adjustment yesterday at 04:00 o'clock her sugars have been in good range going up slightly to 195 with breakfast today. Most recent A1C:8.2% 06/28/24 and 8.1% 02/22/24 Initially diagnosed with T1DM at approximately age 38. Previous RX: Backup insulin pump failure plan: Lantus 17 units 150 no novolog 150-200 2 units 201-250 4 units 251-300 6 units 301-350 8 units 351-400 10 units Most recent A1C:8.1% 02/22/24 Reports low sugars none recent. 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 The pump has been catching any lows it might occur a Treats lows with regular Coke followed by peanut butter crackers if needed Checks sugar after to ensure it is rising. Follows the rule of 15's. Family history of autoimmunity in [] Has pancreatic insufficiency: on Creon Has eyes checked yearly, last eye exam done this year [Denies] neuropathy, last foot exam today self care Nephropathy, on ARB 02/29/24: Microalbumin <5.0 eGFR 59 Has HLD, on statin. Last LDL 87 measured on 02/29/24 Denies history of CAD. Has had diabetes education. Diet/Carb counting:has had instruction Weight: stable [Denies] prior episodes of DKA. 12 AM? to 12 AM? 0.65 units / hr Bolus setting Insulin Carbohydrate Ratio (s) 12 AM? to 12 AM?? 1:15 Correction Factor / Sensitivity Factor 12 AM? to 12 AM? 1:55 Active Insulin Time:? 5 hours new 4.5 Target(s): 12 AM? to 12 AM? 110 mg/dL [facility] Medical History (Updated 02/22/24 @ 14:47 by Yahaira Kwan PA-C) Dyslipidemia Type 1 diabetes mellitus with diabetic nephropathy, with long-term current use of insulin Surgical History History of section Hx of colonoscopy Hx of appendectomy Family History Brother Diabetes Father Heart attack Mother Lung cancer Social History Household Members: Spouse Alcohol intake: current Alcohol intake frequency: holidays/special occasions only Patient Tobacco Use Status: Former Tobacco user Tobacco use type: Cigarette Physical Exam Vital Signs: Last Vital Signs Pulse 75 06/29/24 10:03 BP 132/68 06/29/24 10:03 BMI result Body Mass Index 25.7 Const Other: Absence of Cushingoid features. Absence of acromegalic features. Heart S1 S2, Reg R/R. No M/R G. Skin exam reveals absence of vitiligo or acanthosis nigricans. No edema Visual exam of foot performed. No ulcerations or open lesions. No inter digit maceration or fissuring. No onychomycosis, no callouses. Sensation intact Office Procedures Glucose Monitoring Details Details: See [facility] [id number] - Glucose monitoring, continuous-physician I&R Procedure code (CPT) selection complete Assessment & Plan Assessment & Plan (1) Type 1 diabetes mellitus with diabetic nephropathy, with long-term current use of insulin: Code(s): E10.21 - Type 1 diabetes mellitus with diabetic nephropathy Category: Medical Plan: Type 1 diabetic recently changed to tandem insulin pump and seen yesterday was setting changes. Numbers under much better control today in active insulin time adjusted from 5-4.5 we will further adjust this to 4 hours next visit. Today the bulk of today's visit was spent on pump trouble shooting, educating on treating unresponsive hypoglycemia, backup insulin plan. Prescription sent today for nasal glucagon, Lantus pens and needles for backup. Orders: Orders AMB Glucose Monitoring Today E10.21 - Type 1 diabetes mellitus with diabetic nephropathy Medications: New insulin glargine (Lantus Solostar U-100 Insulin) 17 units (0.17 mL) subcut ONCE 30 days PRN 6 mL 1RF pump failure MDD 17 units E10.21 - Type 1 diabetes mellitus with diabetic nephropathy glucagon 3 mg/actuation (Baqsimi) 3 mg intranasal ONCE 30 days PRN 2 ea 1RF Unresponsive hypoglycemia may repeat once 15 min E10.21 - Type 1 diabetes mellitus with diabetic nephropathy pen needle, diabetic (BD Ultra-Fine Romina Pen Needle) As directed qid prn pump failure 100 ea 8RF E10.21 - Type 1 diabetes mellitus with diabetic nephropathy Patient Instructions: The patient was counseled to always carry a source of sugar and on the rule of 15's: Take 3 glucose tablets and repeat again in 15 minutes if blood sugar is not in normal range. Continue to repeat every 15 minutes until blood sugar is normal. Troubleshooting after starting new pod or inserting new insulin set: Occlusion, adhesive tape sensitivity, redness Check BG 2 hours after site change Safety information: Importance of a backup plan, for manual injections, proper prescriptions and emergency supplies ketone strips, and rules for testing for ketones Symptoms of DKA were reviewed: early: frequent urination, dry mouth, fatigue, feeling ill, severe symptoms: ketones in the urine, abdominal pain, nausea, vomiting and weakness. It is important to hydrate with sugar free liquids every 30 minutes and bring the sugars down to normal levels. Coding Level of Care Code Est Pt Level 4 (32920) Diagnoses Type 1 diabetes mellitus with diabetic nephropathy, with long-term current use of insulin E10.21 CPT Codes Details - CPT: 64354 - Glucose monitoring, continuous-physician I&R ([id number]) Time Spent (min) 30 Comment Reviewing labs/provider notes, glucose sensor/pump reports, face to face, chart doc
[2024-06-29 10:03] VITALS: BP 132/68; PULSE 75; BMI 25.7
[2024-06-29 10:13] LABS: Glucose, Whole Blood 148 mg/dL (60-115)
== END 2024-06-29 10:40 | disposition home or self-care (01) ==
PROVIDERS: PCP Internal Medicine; Visit Provider Nurse Practitioner Adult Health
DX: E10.21 Type 1 diabetes mellitus with diabetic nephropathy (principal)
CPT/HCPCS: 95251; 99214

== ENCOUNTER → 2024-06-29 09:53 | Outpatient (BNVA) | payer MEDICARE, SELFPAY | PROVIDERS: PCP Internal Medicine; Visit Provider Nurse Practitioner Adult Health | DX: E10.21 Type 1 diabetes mellitus with diabetic nephropathy (principal) | CPT/HCPCS: 82947; 99212 ==

== ENCOUNTER 2024-07-27 09:19 | Outpatient (AMB) | payer MEDICARE, SELFPAY ==
--- NOTE | 2024-07-20 07:32 | MHC.OFFVIS ---
Intake Visit Reasons: DM Allergies No Known Allergies Allergy (Verified 06/28/24 13:07) HPI Comments Details: 79 YO female with type 1 diabetes is seen in follow up. She was last seen 3 weeks ago for pump adjustment. She was recently changed to a Tandem insulin pump. She had been seen several times by Judith QUISPE as she had some difficulty reinserting the pump with set changes and had been recommended to trail a True steel set. She has been able to insert several new sets and did not need to change to the true steel. Most recent A1C:8.2% 06/28/24 and 8.1% 02/22/24 Initially diagnosed with T1DM at approximately age 38. Previous RX: Backup insulin pump failure plan: Lantus 17 units 150 no novolog 150-200 2 units 201-250 4 units 251-300 6 units 301-350 8 units 351-400 10 units Reports low sugars none recent. 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 The pump has been catching any lows before they occur. Treats lows with regular Coke followed by peanut butter crackers if needed Checks sugar after to ensure it is rising. Follows the rule of 15's. Family history of autoimmunity in [] Has pancreatic insufficiency: on Creon Has eyes checked yearly, last eye exam done this year Denies neuropathy, last foot exam today self care Nephropathy, on ARB 02/29/24: Microalbumin <5.0 eGFR 59 Has HLD, on statin. Last LDL 87 measured on 02/29/24 Denies history of CAD. Has had diabetes education. Diet/Carb counting:has had instruction Weight: stable [Denies] prior episodes of DKA. 12 AM? to 12 AM? 0.65 units / hr Bolus setting Insulin Carbohydrate Ratio (s) 12 AM? to 12 AM?? 1:15 Correction Factor / Sensitivity Factor 12 AM? to 12 AM? 1:55 Active Insulin Time:? 4.5 hours Target(s): 12 AM? to 12 AM? 110 mg/dL [facility] Medical History (Updated 02/22/24 @ 14:47 by Yahaira Kwan PA-C) Dyslipidemia Type 1 diabetes mellitus with diabetic nephropathy, with long-term current use of insulin Surgical History History of section Hx of colonoscopy Hx of appendectomy Family History Brother Diabetes Father Heart attack Mother Lung cancer Social History Household Members: Spouse Alcohol intake: current Alcohol intake frequency: holidays/special occasions only Patient Tobacco Use Status: Former Tobacco user Tobacco use type: Cigarette Physical Exam Const Other: Absence of Cushingoid features. Absence of acromegalic features. Neck exam reveals nl size thyroid about 15 gms. No thyroid nodules palpable. No carotid bruits present. Lungs CTA. Heart S1 S2, Reg R/R. No M/R G. Skin exam reveals absence of vitiligo or acanthosis nigricans. No edema Visual exam of foot performed. No ulcerations or open lesions. No inter digit maceration or fissuring. No onychomycosis, no callouses. Sensation intact to monofilament exam. Vibratory sensation is normal with 128 Hz tuning fork. Assessment & Plan Assessment & Plan (1) Type 1 diabetes mellitus with diabetic nephropathy, with long-term current use of insulin: Code(s): E10.21 - Type 1 diabetes mellitus with diabetic nephropathy Category: Medical Plan: 79 year old Type 1 diabetic with nephropathy recently changed to tandem insulin pump. The patient had an opportunity to ask questions regarding treatment plan. The patient expressed understanding and agreement with the above treatment plan. The patient is aware they should contact our office by phone for worsening glucose readings or for any low blood sugars which may warrant a change in diabetes medication. Compliance is encouraged with medications and any followup testing/consults which may have been ordered. Patient Instructions: Symptoms of DKA (diabetic ketoacidosis): early: frequent urination, dry mouth, fatigue, feeling ill, severe symptoms: ketones in the urine, abdominal pain, nausea, vomiting and weakness. It is important to hydrate with sugar free liquids every 15-30 minutes and bring the sugars down to normal levels. If you are moderate or severe with ketones or unable to bring glucose to less than 200, go to the emergency room. Troubleshooting after starting new pod or inserting new insulin set: Occlusion, adhesive tape sensitivity, redness Check BG 2 hours after site change Safety information: Importance of a backup plan, for manual injections, proper prescriptions and emergency supplies ketone strips, and rules for testing for ketones Wear closed toe shoes, never walk barefooted and inspect the feet daily. For any signs of infection or open wound patient you should notify your PCP or go to urgent care/ER. Coding Diagnoses Type 1 diabetes mellitus with diabetic nephropathy, with long-term current use of insulin E10.21
--- NOTE | 2024-07-27 09:22 | A.OFFVIS_ITS ---
Vital Signs 07/27/24 09:25 Height 5 ft 5 in Weight 152 lb 1.903 oz BMI 25.3 BP 136/64 Blood Pressure Location Rt brachial Position Sitting Pulse 69 Pulse Source Pulse Oximeter Intake Visit Reasons: DM/CONF Intake Note: Patient patient present today for a follow-up on Type 2 Diabetes Mellitus/Insulin Pump: Patient receives Carissa 3 supplies through: Pharmacy Last Diabetic Eye exam: 05/25/2024, normal exam. Last Podiatry Visit: Does not see a Senior Cyber Security Analyst Most Recent HgA1C: 8.2%, 06/28/2024 Random Glucose: 183 mg/dL, Today Director Of Admissions Required: No Accompanied by: Self / Same As Patient Allergies No Known Allergies Allergy (Verified 07/27/24 09:22) HPI Comments Details: 79 YO female with type 1 diabetes is seen in follow up. She was seen yesterday by Dr. Gilliland for pump adjustment as her sugars were running in the 300 range. She has been seen several times by Judith QUISPE as she had some difficulty reinserting the pump with set changes and had been recommended to trail a True steel set. She has been able to insert several new sets and did not need to change to the true steel. Since her adjustment yesterday at 04:00 o'clock her sugars have been in good range going up slightly to 195 with breakfast today. Most recent A1C:8.2% 06/28/24 and 8.1% 02/22/24 Initially diagnosed with T1DM at approximately age 38. Previous RX: Backup insulin pump failure plan: Lantus 17 units 150 no novolog 150-200 2 units 201-250 4 units 251-300 6 units 301-350 8 units 351-400 10 units Most recent A1C:8.1% 02/22/24 Pump download GME my 7.1% average 159 percentage Sensor in use 95.3 total daily dose of insulin 28.5 basal 15.2 bolus 13.3 Very high 10% high 17% target 73% no lows Reports low sugars none recent. 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 The pump has been catching any lows it might occur a Treats lows with regular Coke followed by peanut butter crackers if needed Checks sugar after to ensure it is rising. Follows the rule of 15's. Family history of autoimmunity in [] Has pancreatic insufficiency: on Creon Has eyes checked yearly, last eye exam done this year 05/2024 [Denies] neuropathy, last foot exam today self care Nephropathy, on ARB 02/29/24: Microalbumin <5.0 eGFR 59 Has HLD, on statin. Last LDL 87 measured on 02/29/24 Denies history of CAD. Has had diabetes education. Diet/Carb counting:has had instruction Weight: stable [Denies] prior episodes of DKA. 12 AM? to 12 AM? 0.65 units / hr Bolus setting Insulin Carbohydrate Ratio (s) 12 AM? to 12 AM?? 1:15 Correction Factor / Sensitivity Factor 12 AM? to 12 AM? 1:55 Active Insulin Time:? 5 hours new 4.5 Target(s): 12 AM? to 12 AM? 110 mg/dL PFSH Medical History Dyslipidemia Type 1 diabetes mellitus with diabetic nephropathy, with long-term current use of insulin Surgical History History of section Hx of colonoscopy Hx of appendectomy Family History Brother Diabetes Father Heart attack Mother Lung cancer Social History Household Members: Spouse Alcohol intake: current Alcohol intake frequency: holidays/special occasions only Patient Tobacco Use Status: Former Tobacco user Tobacco use type: Cigarette Physical Exam Vital Signs: Last Vital Signs Pulse 69 07/27/24 09:25 BP 136/64 07/27/24 09:25 BMI result Body Mass Index 25.3 Const Other: Absence of Cushingoid features. Absence of acromegalic features. Neck exam reveals nl size thyroid about 15 gms. No thyroid nodules palpable. Heart S1 S2, Reg R/R. No M/R G. Skin exam reveals absence of vitiligo or acanthosis nigricans. Results Reviewed Results Reviewed: Laboratory Last Values Glucose (Clinic) 183 mg/dL (60-115) H 07/27/24 09:27 Assessment & Plan Assessment & Plan (1) Type 1 diabetes mellitus with diabetic nephropathy, with long-term current use of insulin: Code(s): E10.21 - Type 1 diabetes mellitus with diabetic nephropathy Category: Medical Plan: Type 1 diabetic on an insulin pump with improved for readings. Active insulin time lowered slightly average glucose 159 doing well on insulin pump The patient had an opportunity to ask questions regarding treatment plan. The patient expressed understanding and agreement with the above treatment plan. The patient is aware they should contact our office by phone for worsening glucose readings or for any low blood sugars which may warrant a change in diabetes medication. Compliance is encouraged with medications and any followup testing/consults which may have been ordered. Patient Instructions: Symptoms of DKA (diabetic ketoacidosis): early: frequent urination, dry mouth, fatigue, feeling ill, severe symptoms: ketones in the urine, abdominal pain, nausea, vomiting and weakness. It is important to hydrate with sugar free liquids every 15-30 minutes and bring the sugars down to normal levels. If you are moderate or severe with ketones or unable to bring glucose to less than 200, go to the emergency room. Troubleshooting after starting new pod or inserting new insulin set: Occlusion, adhesive tape sensitivity, redness Check BG 2 hours after site change Safety information: Importance of a backup plan, for manual injections, proper prescriptions and emergency supplies ketone strips, and rules for testing for ketones The patient was counseled to always carry a source of sugar and on the rule of 15's: Take 3 glucose tablets and repeat again in 15 minutes if blood sugar is not in normal range. Continue to repeat every 15 minutes until blood sugar is normal. Check your feet daily looking for any signs of infection, ulceration and seek medical attention if this occurs. Break in shoes gradually and do not wear open-toed shoes or walk barefooted. Coding Level of Care Code Est Pt Level 4 (63491) Complex EM visit Add On G2211 Diagnoses Type 1 diabetes mellitus with diabetic nephropathy, with long-term current use of insulin E10.21
[2024-07-27 09:25] VITALS: BP 136/64; PULSE 69; BMI 25.3
[2024-07-27 09:35] LABS: Glucose, Whole Blood 183 mg/dL (60-115)
== END 2024-07-27 10:04 | disposition home or self-care (01) ==
PROVIDERS: PCP Internal Medicine; Visit Provider Nurse Practitioner Adult Health
DX: E10.21 Type 1 diabetes mellitus with diabetic nephropathy (principal)
CPT/HCPCS: 99214; G2211

== ENCOUNTER → 2024-07-27 09:19 | Outpatient (BNVA) | payer MEDICARE, SELFPAY | PROVIDERS: PCP Internal Medicine; Visit Provider Nurse Practitioner Adult Health | DX: E10.21 Type 1 diabetes mellitus with diabetic nephropathy (principal); Z96.41 Presence of insulin pump (external) (internal); Z79.4 Long term (current) use of insulin | CPT/HCPCS: 82947; 99212 ==

== ENCOUNTER 2024-10-05 09:36 | Outpatient (AMB) | payer MEDICARE, SELFPAY ==
--- NOTE | 2024-10-05 08:32 | A.OFFVIS_ITS ---
Vital Signs 10/05/24 09:43 Height 5 ft 5 in Weight 153 lb 3.54 oz BMI 25.5 BP 142/68 H Blood Pressure Location Rt brachial Position Sitting Pulse 82 Pulse Source Pulse Oximeter Intake Visit Reasons: DM Intake Note: Patient presents today for a follow-up on Type 1 Diabetes Mellitus/Insulin Pump: Patient receives Carissa 3 supplies through: Pharmacy Last Diabetic Eye exam: 05/25/2024, normal exam. Last Podiatry Visit: Does not see a Metal Tank Builder Most Recent HgA1C: 7.6%, 10/05/2024 Random Glucose: 99 mg/dL, Today Oracle Database Developer Required: No Accompanied by: Self / Same As Patient Allergies No Known Allergies Allergy (Verified 10/05/24 09:44) HPI Comments Details: 79 YO female with type 1 diabetes is seen in follow up. She was seen in endocine clinic 07/27/14 at which time her pump settings were changed to lower the active insulin time to improve postprandial numbers. Hemoglobin A1c 10/05/2024 7.6%, 06/28/2024 8.2 %. She reports she has been under stress with multiple deaths of friends recently. She stays busy watching her grandchild. Initially diagnosed with T1DM at approximately age 38. Previous RX: Backup insulin pump failure plan: Lantus 17 units 150 no novolog 150-200 2 units 201-250 4 units 251-300 6 units 301-350 8 units 351-400 10 units Dexcom average glucose: 168 14 day continuous glucose monitor report reviewed Glucose Managment indicator 7.3 % Days with CGM data 100 % TIme in ranges: Twelve % very high (above 250) 16 % high ?(181-250) 72 % in range ?(70-180] 0 % low (69-55) 0 % ?very low (below 54) [ 77] Standard Deviation Interpretation [ well-controlled with some minor postprandial elevation after lunch] Reports low sugars none recent. 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 The pump has been catching any lows that may might occur She reports some hyperglycemia secondary to recent dietary indiscretions. Treats lows with regular Coke followed by peanut butter crackers if needed Checks sugar after to ensure it is rising. Follows the rule of 15's. Family history of autoimmunity in [] Has pancreatic insufficiency: not on creon as she has side effects from this. Denies retinopathy: Has eyes checked yearly, last eye exam done this year 05/2024 Denies neuropathy. No numbness, tingling pain or cramping in the lower extremities last foot exam today self care does not see podiatrycr Nephropathy, on ARB 02/29/24: Microalbumin <5.0 eGFR 59 Has HLD, on statin. Last LDL 87 measured on 02/29/24 Denies history of CAD. Has had diabetes education. Diet/Carb counting:has had instruction Weight: stable Denies prior episodes of DKA. 12 AM? to 12 AM? 0.65 units / hr Bolus setting Insulin Carbohydrate Ratio (s) 12 AM? to 12 AM?? 1:15 Correction Factor / Sensitivity Factor 12 AM? to 12 AM? 1:55 Active Insulin Time:? 4.5 hours Target(s): 12 AM? to 12 AM? 110 mg/dL PFSH Medical History Dyslipidemia Type 1 diabetes mellitus with diabetic nephropathy, with long-term current use of insulin Surgical History History of section Hx of colonoscopy Hx of appendectomy Family History Brother Diabetes Father Heart attack Mother Lung cancer Social History Household Members: Spouse Alcohol intake: current Alcohol intake frequency: holidays/special occasions only Patient Tobacco Use Status: Former Tobacco user Tobacco use type: Cigarette Physical Exam Vital Signs: Last Vital Signs Pulse 82 10/05/24 09:43 BP 142/68 H 10/05/24 09:43 BMI result Body Mass Index 25.5 Const Other: Absence of Cushingoid features. Absence of acromegalic features. Neck exam reveals nl size thyroid about 15 gms. No thyroid nodules palpable. No carotid bruits present. Lungs CTA. Heart S1 S2, Reg R/R. No M/R G. Skin exam reveals a bsence of vitiligo or acanthosis nigricans. No edema Visual exam of foot performed. No ulcerations or open lesions. No inter digit maceration or fissuring. No onychomycosis, no callouses. Sensation intact to monofilament exam. Vibratory sensation is normal with 128 Hz tuning fork. Good cap refill positive pulses Office Procedures Glucose Monitoring Details Details: See [facility] [address] - Glucose monitoring, continuous-physician I&R Procedure code (CPT) selection complete Results AMB Hemoglobin A1c AMB Hemoglobin A1c 7.6 % Last Edit by LEONARD Flanagan on 10/05/24 10:00 Results Reviewed Results Reviewed: Laboratory Last Values Glucose (Clinic) 99 mg/dL (60-115) 10/05/24 09:50 Hgb A1c (Clinic) 7.6 % (4.0-6.0) H 10/05/24 09:59 Assessment & Plan Assessment & Plan (1) Type 1 diabetes mellitus with diabetic nephropathy, with long-term current use of insulin: Code(s): E10.21 - Type 1 diabetes mellitus with diabetic nephropathy Category: Medical Plan: 79-year-old type 1 diabetic on an insulin pump with mild nephropathy. No other known micro/macrovascular complications with a A1c 10/05/2024 of 7.6%. Given her age and hypoglycemia unawareness this is an appropriate A1c. Pharmacy contacted that patient will run out of insulin early this month and requested early refill due to change in volume of insulin in the pump The patient had an opportunity to ask questions regarding treatment plan. The patient expressed understanding and agreement with the above treatment plan. The patient is aware they should contact our office by phone for worsening glucose readings or for any low blood sugars which may warrant a change in diabetes medication. Compliance is encouraged with medications and any followup testing/consults which may have been ordered. Orders: Orders AMB Hemoglobin A1c 10/05/24 E10.21 - Type 1 diabetes mellitus with diabetic nephropathy AMB Glucose Monitoring Today E10.21 - Type 1 diabetes mellitus with diabetic nephropathy Medications: Changed From Novolog U-100 Insulin aspart (insulin aspart U-100) up to 40 units daily subcutaneously daily; via continuous insulin pump 30 days 20 mL 11RF NS To Novolog U-100 Insulin aspart (insulin aspart U-100) up to 60 units daily subcutaneously daily; via continuous insulin pump 90 days 60 mL 3RF NS Refilled Novolog U-100 Insulin aspart (insulin aspart U-100) up to 60 units daily subcutaneously daily; via continuous insulin pump 90 days 60 mL 3RF NS Discontinued [id number] 36,000-114,000- 180,000 unit (Creon) administer with meals and/or snacks Discontinued Reason: Doctor's Order 2 caps PO BID 120 caps 3RF K86.81 - Exocrine pancreatic insufficiency pen needle, diabetic (BD Ultra-Fine Mini Pen Needle) Discontinued Reason: Doctor's Order As directed 100 ea 2RF glucagon 3 mg/actuation (Baqsimi) Discontinued Reason: Doctor's Order 3 mg intranasal ONCE 30 days PRN 2 ea 1RF Unresponsive hypoglycemia may repeat once 15 min E10.21 - Type 1 diabetes mellitus with diabetic nephropathy Patient Instructions: The patient was counseled to always carry a source of sugar and on the rule of 15's: Take 3 glucose tablets and repeat again in 15 minutes if blood sugar is not in normal range. Continue to repeat every 15 minutes until blood sugar is normal. Symptoms of DKA (diabetic ketoacidosis): early: frequent urination, dry mouth, fatigue, feeling ill, severe symptoms: ketones in the urine, abdominal pain, nausea, vomiting and weakness. It is important to hydrate with sugar free liquids every 15-30 minutes and bring the sugars down to normal levels. If you are moderate or severe with ketones or unable to bring glucose to less than 200, go to the emergency room. Troubleshooting after starting new pod or inserting new insulin set: Occlusion, adhesive tape sensitivity, redness Check BG 2 hours after site change Safety information: Importance of a backup plan, for manual injections, proper prescriptions and emergency supplies ketone strips, and rules for testing for ketones Check your feet daily looking for any signs of infection, ulceration and seek medical attention if this occurs. Break in shoes gradually and do not wear open-toed shoes or walk barefooted. The patient was counseled to achieve a target A1C of 7% (154 avg). Fasting blood sugars should be 90-130 in the morning and less than 180 two hours after meals. Reviewed the relationship between poor diabetic control and the development of complications. Coding Level of Care Code Est Pt Level 5 (36911) Diagnoses Type 1 diabetes mellitus with diabetic nephropathy, with long-term current use of insulin E10.21 CPT Codes Details - CPT: 42588 - Glucose monitoring, continuous-physician I&R ([id number]) Time Spent (min) 40 Comment Reviewing labs/provider notes, glucose sensor/pump reports, face to face, chart doc
[2024-10-05 09:43] VITALS: BP 142/68; PULSE 82; BMI 25.5
[2024-10-05 09:55] LABS: Glucose, Whole Blood 99 mg/dL (60-115)
== END 2024-10-05 10:20 | disposition home or self-care (01) ==
PROVIDERS: PCP Internal Medicine; Visit Provider Nurse Practitioner Adult Health
DX: E10.21 Type 1 diabetes mellitus with diabetic nephropathy (principal)
CPT/HCPCS: 95251; 99215

== ENCOUNTER → 2024-10-05 09:36 | Outpatient (BNVA) | payer MEDICARE, SELFPAY | PROVIDERS: PCP Internal Medicine; Visit Provider Nurse Practitioner Adult Health | DX: E10.21 Type 1 diabetes mellitus with diabetic nephropathy (principal); K86.81 Exocrine pancreatic insufficiency; Z96.41 Presence of insulin pump (external) (internal) | CPT/HCPCS: 82947; 83036; 99212 ==

== ENCOUNTER 2025-01-10 09:13 | Outpatient (AMB) | payer MEDICARE, SELFPAY ==
--- NOTE | 2025-01-10 07:19 | MHC.OFFVIS ---
Vital Signs 01/10/25 09:15 Height 5 ft 5 in Weight 152 lb 5.431 oz BMI 25.3 BP 130/64 Blood Pressure Location Rt brachial Position Sitting Pulse 71 Pulse Source Pulse Oximeter Pulse Oximetry (%) 94 Oxygen Delivery Method Room Air Intake Visit Reasons: DM Intake Note: Patient present today for Type 1 Diabetes Mellitus Last Diabetic eye exam: 02/2024 Last Podiatry Visit: Doesn't have one Random Glucose: 201 mg/dl HgA1C: 7.2% Manager Wealth Management Required: No Accompanied by: Self / Same As Patient Allergies No Known Allergies Allergy (Verified 01/10/25 09:20) HPI Comments Details: 79 YO female with type 1 diabetes is seen in follow up. She was seen in endocine clinic 10/05/24 with the an A1c is 7.6% down from previous 8.2%. Today she is 7.2%. Initially diagnosed with T1DM at approximately age 38. Previous RX: Backup insulin pump failure plan: Lantus 17 units 150 no novolog 150-200 2 units 201-250 4 units 251-300 6 units over 300 8 units Dexcom average glucose: 169 14 day continuous glucose monitor report reviewed Glucose Managment indicator 7.4 % Days with CGM data 95 % TIme in ranges: 10 % very high (above 250) 28 % high ?(181-250) 62 % in range ?(70-180] 0 % low (69-55) 0 % ?very low (below 54) She is having some postprandial excursions from not entering her carbohydrates prior to the meal. She is entering in 52 carbs per day Interpretation: She is in control IQ 96% of the time 59% 16.5 units basal 41% 11.7 bolus total daily dose 28.2 She had 1 episode where her sugars went to the 400 range and was having diarrhea. She did not test for ketones as her to strips route dated. Sugars eventually did come down with the manual injection end-stage down. Reports low sugars none recent. 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 The pump has been catching any lows that may might occur Treats lows with regular Coke followed by peanut butter crackers if needed Checks sugar after to ensure it is rising. Follows the rule of 15's. Family history of autoimmunity in [] Has pancreatic insufficiency: not on creon as she has side effects from this. Denies retinopathy: Has eyes checked yearly, last eye exam done this year 05/2024 has recently had neuropathy. Positive intermittent numbness, no tingling pain or cramping in the lower extremities last foot exam today self care does not see podiatry Has Nephropathy, on ARB 02/29/24: Microalbumin <5.0 eGFR 59 Has HLD, on statin. Last LDL 87 measured on 02/29/24 Denies history of CAD. She reports fleeting lasting just a few sec pain in the right breast, occasionally left sided without radiation to jaw or arm. Generally occurs when she is sitting down. She had been contact her PCP to discuss this Has had diabetes education. Diet/Carb counting:has had instruction Weight: stable Denies prior episodes of DKA. 12 AM? to 12 AM? 0.65 units / hr Bolus setting Insulin Carbohydrate Ratio (s) 12 AM? to 12 AM?? 1:15 Correction Factor / Sensitivity Factor 12 AM? to 12 AM? 1:55 Active Insulin Time:? 4.5 hours basal 3.5 hours Target(s): 12 AM? to 12 AM? 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 Dyslipidemia Type 1 diabetes mellitus with diabetic nephropathy, with long-term current use of insulin Surgical History History of section Hx of colonoscopy Hx of appendectomy Family History Brother Diabetes Father Heart attack Mother Lung cancer Social History Household Members: Spouse Alcohol intake: current Alcohol intake frequency: holidays/special occasions only Patient Tobacco Use Status: Former Tobacco user Tobacco use type: Cigarette Physical Exam Vital Signs: Last Vital Signs Pulse 71 01/10/25 09:15 BP 130/64 01/10/25 09:15 Pulse Ox 94 01/10/25 09:15 Oxygen Delivery Method Room Air 01/10/25 09:15 BMI result Body Mass Index 25.3 Const Other: Absence of Cushingoid features. Absence of acromegalic features. Neck exam reveals nl size thyroid about 15 gms. No thyroid nodules palpable. Heart S1 S2, Reg R/R. No M/R G. Skin exam reveals absence of vitiligo or acanthosis nigricans. Visual exam of foot performed. No ulcerations or open lesions. No inter digit maceration or fissuring. No onychomycosis, no callouses. Sensation intact to monofilament exam. Vibratory sensation is absent left foot, present right foot with 128 Hz tuning fork. Results AMB Hemoglobin A1c AMB Hemoglobin A1c 7.2 % Last Edit by LEONARD Rogers on 01/10/25 09:31 Results Reviewed Results Reviewed: Laboratory Last Values Glucose (Clinic) 201 mg/dL (60-115) H 01/10/25 09:22 Hgb A1c (Clinic) 7.2 % (4.0-6.0) H 01/10/25 09:24 Assessment & Plan Assessment & Plan (1) Type 1 diabetes mellitus with diabetic nephropathy, with long-term current use of insulin: Code(s): E10.21 - Type 1 diabetes mellitus with diabetic nephropathy Category: Medical Plan: 79-year-old type 1 diabetic with pancreatic insufficiency, EGFR 59, hypoglycemia awareness on an insulin pump with an a1c of 7.2%. She is having postprandial excursions primarily triggered by not entering her carbohydrates before the meal. Active insulin time was shortened today from 4.5-3.5. Ketone test strips were sent. Patient has all other backup emergency supplies for pump failure. The patient had an opportunity to ask questions regarding treatment plan. The patient expressed understanding and agreement with the above treatment plan. The patient is aware they should contact our office by phone for worsening glucose readings or for any low blood sugars which may warrant a change in diabetes medication. Compliance is encouraged with medications and any followup testing/consults which may have been ordered. 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 Recheck your sugar in 15 minutes and re-treat again with 15 carbohydrate grams if low or still with symptoms. Do not drive a car or operate machinery if you do not know what your blood sugar is, if it is low or in excess of 300. Symptoms of DKA (diabetic ketoacidosis): early: frequent urination, dry mouth, fatigue, feeling ill, severe symptoms: ketones in the urine, abdominal pain, nausea, vomiting and weakness. It is important to hydrate with sugar free liquids every 15-30 minutes and bring the sugars down to normal levels. If you are moderate or severe with ketones or unable to bring glucose to less than 200, go to the emergency room. DKA handout was given Troubleshooting after starting new pod or inserting new insulin set: Occlusion, adhesive tape sensitivity, redness Check BG 2 hours after site change Safety information: Importance of a backup plan, for manual injections, proper prescriptions and emergency supplies ketone strips, and rules for testing for ketones (3) Breast pain in female: Code(s): N64.4 - Mastodynia Category: Medical Plan: She will schedule an appointment with her PCP due to discuss. atypical for angina. She was counseled that if it occurs she should sit down and rest and lasts more than 5 minutes call 911 Orders: Orders AMB Hemoglobin A1c Today E10.21 - Type 1 diabetes mellitus with diabetic nephropathy, Z13.9 - Encounter for screening, unspecified Medications: New acetone (urine) test (Ketone Urine Test strips) T.i.d. 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
[2025-01-10 09:15] VITALS: BP 130/64; PULSE 71; O2SAT 94; BMI 25.3
[2025-01-10 09:32] LABS: Glucose, Whole Blood 201 mg/dL (60-115)
== END 2025-01-10 09:51 | disposition home or self-care (01) ==
LOC: HO.ENCR 09:14
PROVIDERS: PCP Internal Medicine; Visit Provider Nurse Practitioner Adult Health
DX: E10.21 Type 1 diabetes mellitus with diabetic nephropathy (principal); E10.649 Type 1 diabetes mellitus with hypoglycemia without coma; N64.4 Mastodynia; Z13.9 Encounter for screening, unspecified
CPT/HCPCS: 99214

== ENCOUNTER → 2025-01-10 09:13 | Outpatient (BNVA) | payer MEDICARE, SELFPAY | PROVIDERS: PCP Internal Medicine; Visit Provider Nurse Practitioner Adult Health | DX: E10.21 Type 1 diabetes mellitus with diabetic nephropathy (principal); E10.649 Type 1 diabetes mellitus with hypoglycemia without coma; N64.4 Mastodynia; Z79.4 Long term (current) use of insulin; Z96.41 Presence of insulin pump (external) (internal) | CPT/HCPCS: 82947; 83036; 99212 ==

== ENCOUNTER 2025-04-20 11:18 | Outpatient (AMB) | payer MEDICARE, SELFPAY ==
--- NOTE | 2025-04-20 11:22 | MHC.OFFVIS ---
Vital Signs 04/20/25 11:31 Height 5 ft 5 in Weight 155 lb 3.287 oz BMI 25.8 BP 132/56 L Blood Pressure Location Rt brachial Position Sitting Pulse 70 Pulse Source Pulse Oximeter Pulse Oximetry (%) 97 Oxygen Delivery Method Room Air Intake Visit Reasons: T1DM (pump patient) Intake Note: Patient present today for Type 1 Diabetes Mellitus. Patient receives Dexcom G7 and Tandem pump through: [facility] Last Diabetic eye exam: February 2024, has an appointment coming up unsure if it is this month or next month. Last Podiatry Visit: Does not see a Learning And Development Associate Random Glucose: 110 mg/dl HgA1C: 7.6% 04/20/25 Adult School Counselor Required: No Accompanied by: Self / Same As Patient Allergies No Known Allergies Allergy (Verified 04/20/25 11:32) Medication List - Last Reconciled 04/20/25 by Cali Banegas MD acetone (urine) test (Ketone Urine Test strips) T.i.d. as directed for glucose over 250, illness, nausea or vomiting atorvastatin 40 mg PO DAILY blood-glucose sensor (Dexcom G7 Sensor device) USE DAILY DIRECTED TO MONITOR BLOOD SUGARS, PLACE ON SKIN, REPLACE EVERY 10 DAYS blood-glucose,breakdown person,cont (Dexcom G7 Automotive Product Specialist) Use daily As directed to monitor blood sugars insulin glargine (Lantus Solostar U-100 Insulin) 17 units (0.17 mL) subcut ONCE PRN 30 days MDD 17 units insulin syringe-needle U-100 (BD Insulin Syringe Ultra-Fine) qid for pump failure or glucose correction 4 times daily when pump fails or if needing to check sensor for correct numbers lactulose 20 grams (30 mL) PO BEDTIME losartan 25 mg PO DAILY Novolog U-100 Insulin aspart (insulin aspart U-100) up to 60 units daily subcutaneously daily; via continuous insulin pump 90 days NS pen needle, diabetic (BD Ultra-Fine Romina Pen Needle) As directed qid prn pump failure sertraline 25 mg PO DAILY trazodone 200 mg PO BEDTIME PRN HPI Comments Details: 79 YO female with type 1 diabetes is seen in follow up. She was seen in endocine clinic by Cuca Mcclure NP on 01/10/25 Initially diagnosed with T1DM at approximately age 38. Previous RX: Backup insulin pump failure plan: Lantus 17 units 150 no novolog 150-200 2 units 201-250 4 units 251-300 6 units over 300 8 units Dexcom average glucose: 152 14 day continuous glucose monitor report reviewed Glucose Managment indicator 7.0 % Days with CGM data 95.7 % TIme in ranges: 8 % very high (above 250) 14 % high ?(181-250) 77 % in range ?(70-180] 1 % low (69-55) 0 % ?very low (below 54) She is having some postprandial excursions from not entering her carbohydrates prior to the meal. She is entering in 52 carbs per day Interpretation: She is in control IQ 95% of the time 59% 16.5 units basal 41% 11.7 bolus total daily dose 28.2 Reports low sugars last wk but had to fly out in emergency and was not eating . 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 The pump has been catching any lows that may might occur Treats lows with regular Coke followed by peanut butter crackers if needed Checks sugar after to ensure it is rising. Follows the rule of 15's. Family history of autoimmunity in [] Has pancreatic insufficiency: not on creon as she has side effects from this. Denies retinopathy: Has eyes checked yearly, last eye exam done this year has recently had neuropathy. Positive intermittent numbness, no tingling pain or cramping in the lower extremities last foot exam today self care does not see podiatry Has Nephropathy, on ARB 02/29/24: Microalbumin <5.0 eGFR 59 Has HLD, on statin. Last LDL 87 measured on 02/29/24 Denies history of CAD. She reports fleeting lasting just a few sec pain in the right breast, occasionally left sided without radiation to jaw or arm. Generally occurs when she is sitting down. She had been contact her PCP to discuss this Has had diabetes education. Diet/Carb counting:has had instruction Weight: stable Denies prior episodes of DKA. Tandem T- Slim X2 12 AM? to 12 AM? 0.65 units / hr Bolus setting Insulin Carbohydrate Ratio (s) 12 AM? to 12 AM?? 1:15 Correction Factor / Sensitivity Factor 12 AM? to 12 AM? 1:55 Active Insulin Time:? 4.5 hours basal 3.5 hours Target(s): 12 AM? to 12 AM? 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 Dyslipidemia Type 1 diabetes mellitus with diabetic nephropathy, with long-term current use of insulin Surgical History History of section Hx of colonoscopy Hx of appendectomy Family History Brother Diabetes Father Heart attack Mother Lung cancer Social History Household Members: Spouse Alcohol intake: current Alcohol intake frequency: holidays/special occasions only Patient Tobacco Use Status: Former Tobacco user Tobacco use type: Cigarette Physical Exam Vital Signs: Last Vital Signs Pulse 70 04/20/25 11:31 BP 132/56 L 04/20/25 11:31 Pulse Ox 97 04/20/25 11:31 Oxygen Delivery Method Room Air 04/20/25 11:31 BMI result Body Mass Index 25.8 Absence of Cushingoid features. Absence of acromegalic features. Neck exam reveals nl size thyroid about 15 gms. No thyroid nodules palpable. No carotid bruits present. Lungs CTA. Heart S1 S2, Reg R/R. No M/R/ G. Skin exam reveals absence of vitiligo or acanthosis nigricans. Abdominal exam reveals Soft NT/ND with NA BS. No organomegaly present. Neck Other: . Extrem Other: Visual exam of foot performed. No ulcerations or open lesions. No onchomycosis, no callouses.Pulses 2 + distally Sensation intact to monofilament exam. Vibratory sensation sensed is intact with 128 Hz tuning fork Results AMB Hemoglobin A1c AMB Hemoglobin A1c 7.6 % Last Edit by LEONARD Cooper on 04/20/25 11:52 Results Reviewed Results Reviewed: Laboratory Last Values Glucose (Clinic) 110 mg/dL (60-115) 04/20/25 11:39 Assessment & Plan Assessment & Plan (1) Type 1 diabetes mellitus with diabetic nephropathy, with long-term current use of insulin: Code(s): E10.21 - Type 1 diabetes mellitus with diabetic nephropathy Category: Medical Plan: This 79-year-old white female with a history of pancreaolytic diabetes being managed with a tandem T slim X 2 pump with excellent glycemic control and known microvascular complications namely nephropathy. Plan is to decrease the basal to 0.55 u/hr from 12 A-6A . We will recheck lipid profile and microalbumin to creatinine ratio. Will have patient follow up in 3 months Orders: Orders AMB Hemoglobin A1c Today E10.21 - Type 1 diabetes mellitus with diabetic nephropathy Lipid Panel Today E10.21 - Type 1 diabetes mellitus with diabetic nephropathy Microalbumin, Random (w Creat) Today E10.21 - Type 1 diabetes mellitus with diabetic nephropathy Medications: New glucagon 3 mg/actuation (Baqsimi) 3 mg intranasal ONCE 2 ea 5RF Coding Level of Care Code Est Pt Level 4 (60561) Complex EM visit Add On G2211 Diagnoses Type 1 diabetes mellitus with diabetic nephropathy, with long-term current use of insulin E10.21
[2025-04-20 11:31] VITALS: BP 132/56; PULSE 70; O2SAT 97; BMI 25.8
[2025-04-20 11:44] LABS: Glucose, Whole Blood 110 mg/dL (60-115)
--- OUTSIDE RECORDS SUMMARY | 2025-04-20 12:00 | XMS_ITS | Clinical Summary ---
Author Organization [facility] Address [address] [place] [id number] Phone Care Team Providers Care Revenue Research Analyst Name Role Phone Nola Landers MD Primary Care Provide r Social History Tobacco Use Types Packs/Day Years Used Date Smoking Tobacco: Never Assessed Education Answer Date Recorded Are you interested in more education? Not on delio e 01/22/2024 Are you concerned about learning? Not on file 01/22/2024 No 01/22/2024 No 01/22/2024 Digital Access Answer Date Recorded No 01/22/2024 No 01/22/2024 Reliable internet access at home? Not on file 01/22/2024 Device with a working camera? Not on file Comments Unknown Sex and Gender Information Value Date Recorded Sex Assigned at Not on file Legal Sex Female 3:37 PM EDT Gender Identity Not on file Sexual Orientation Not on file Plan of Treatment Health Maintenance Due Date Last Done Comments Adult Td,Tdap Booster 1945 LIPID PANEL 1945 DEPRESSION SCREENING 1959 SMOKING Hx and SMOKELESS TOB ACCO SCREENING 1960 HEPATITIS C SCREENING 1965 PNEUMOCOCCAL VACCINES (50+ y ears) (1 of 1 - PCV) 1997 ZOSTER VACCINES (1 of 2) 1997 OSTEOPOROSIS SCREENING INITI AL (ONE-TIME) 2012 RSV VACCINE (1 - 1-dose 75+ series) 2022 COVID-19 VACCINE ( - 2023-2 5 season) 2024 HEPATITIS A VACCINES Aged Out No long er eligible based on patient's age to complete this topic HIB VACCINES Aged Out No longer eligi ble based on patient's age to complete this topic MENINGOCOCCAL VACCINES (ACWY) Aged Out No longer eligible based on patient's age to complete this topic MENINGOCOCCAL VACCINES (B) Aged Out N o longer eligible based on patient's age to complete this topic Medical Devices Not on file Insurance MEDICARE PPO BLUE REPLACEMENT MEDICARE PPO BLUE REPLACEMENT MEDICARE PPO BLUE REPLACEMENT [address] [place] [address] MEDICARE PPO BLUE REPLAC[place] [address] [place] [address] MEDICARE PPO BLUE REPLACEMENT [place] [address] MEDICARE PPO BLUE REPLACEMENT Care Teams Revenue Research Analyst Relationship Specialty Start Date End Date Nola Landers MD [address] [place] [id number] PCP - General Internal Medicine 12/11/23 Additional Source Comments The information contained in this document represents components of the legal health record. It is not the complete legal health record.[facility]
== END 2025-04-20 12:10 | disposition home or self-care (01) ==
LOC: HO.ENCR 11:19
PROVIDERS: PCP Internal Medicine; Visit Provider Internal Medicine Endocrinology, Diabetes & Metabolism
DX: E10.21 Type 1 diabetes mellitus with diabetic nephropathy (principal)
CPT/HCPCS: 99214; G2211

== ENCOUNTER → 2025-04-20 11:18 | Outpatient (BNVA) | payer MEDICARE, SELFPAY | PROVIDERS: PCP Internal Medicine; Visit Provider Internal Medicine Endocrinology, Diabetes & Metabolism | DX: E10.21 Type 1 diabetes mellitus with diabetic nephropathy (principal) | CPT/HCPCS: 82947; 83036; 99212 ==

== ENCOUNTER 2025-06-07 10:45 | Outpatient (AMB) | payer MEDICARE, SELFPAY ==
--- NOTE | 2025-06-07 11:16 | MHC.AMDMED ---
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 Dyslipidemia Type 1 diabetes mellitus with diabetic nephropathy, with long-term current use of insulin Surgical History History of section Hx of colonoscopy Hx of appendectomy Family History Brother Diabetes Father Heart attack Mother Lung cancer Social History Household Members: Spouse Alcohol intake: current Alcohol intake frequency: holidays/special occasions only Patient Tobacco Use Status: Former Tobacco user Tobacco use type: Cigarette Assessment & Plan Assessment & Plan (1) Type 1 diabetes mellitus with diabetic nephropathy, with long-term current use of insulin: Code(s): E10.21 - Type 1 diabetes mellitus with diabetic nephropathy Plan: Patient presents for pump training for T-Slim X2 pump and CGM training today. The following topics were reviewed today: -CGM settings(if integrated system): CGM graft views and trend arrows, alerts and alarms, Start new sensor ??? High Alert: 200 mg/dl ??? Low Alert: 70 mg/dl Tandem Password: [email or web address] Room n House ID: Patient is experiencing postprandial hyperglycemia, reviewed with patient basic carb counting. Patient stated at visit she does the best she can with carb counting, does admit that sometimes she forgets to take insulin before her meals. Discussed with patient the importance of not entering carbs in if it has been more than 30 minutes after she has eaten. If she is experiencing hyperglycemia she can just take correction dose through the pump Safety information: Importance of a backup plan, for manual injections, proper prescriptions and emergency supplies ketone strips, and rules for testing for ketones Patient understands the basic concepts of pump therapy, how to give insulin for meals and snacks, how to troubleshoot for hyper and hypoglycemia. Setting verified by CDCES, see changes made to insulin pump settings at today's visit Basal rate(s) (units/hour) : 12 AM? to 6 AM? 0.55 units / hr 6 AM? to 12 AM? 0.65 units / hr Bolus setting Insulin Carbohydrate Ratio (s) 12 AM? to 6 AM?? 1:15 New 6 AM to 12 AM 1:14 Correction Factor / Sensitivity Factor 12 AM? to 12 AM? 1:55 Active Insulin Time:? 5 hours Target(s): 12 AM? to 12 AM? 110 mg/dL Patient [facility] with [facility] as instructed Coding Level of Care Code Est Pt Level 1 (76072) Diagnoses Type 1 diabetes mellitus with diabetic nephropathy, with long-term current use of insulin E10.21
--- OUTSIDE RECORDS SUMMARY | 2025-06-07 13:31 | XMS_ITS | Clinical Summary ---
Author Organization [facility] Address [address] [facility] [address] [place] [address] Phone Care Team Providers Care Java Developer Analyst Name Role Phone Nola Landers MD [...] VACCINE (1 - 1-dose 75+ series) 2022 INFLUENZA VACCINE (#1) 2025 COVID-19 VACCINE ( - 2023-2 5 season) 2025 HEPATITIS A VACCINES Aged Out No long [...] topic Medical Devices Not on file Insurance [place] [address] MEDICARE PPO BLUE REPLACEMENT [facility] MEDICARE PPO BLUE REPLACEMENT [facility] MEDICARE PPO BLUE REPLAC[place] [address] [address] MEDICARE PPO BLUE REPLACEMENT [place] [address] MEDICARE PPO BLUE REPLACEMENT Care Teams Java Developer Analyst Relationship Specialty Start Date End Date Nola Landers MD [address] [place] [id number] PCP - General Internal Medicine 12/11/23 Additional Source Comments The information contained in this document represents components of the legal health record. It is not the complete legal health record.[facility]
== END 2025-06-07 11:56 | disposition home or self-care (01) ==
LOC: HO.ENCR 10:46
PROVIDERS: PCP Internal Medicine; Visit Provider Registered Nurse Diabetes Educator
DX: E10.21 Type 1 diabetes mellitus with diabetic nephropathy (principal)

== ENCOUNTER → 2025-06-07 10:45 | Outpatient (BNVA) | payer MEDICARE, SELFPAY | PROVIDERS: PCP Internal Medicine; Visit Provider Registered Nurse Diabetes Educator | DX: E10.649 Type 1 diabetes mellitus with hypoglycemia without coma (principal); E10.21 Type 1 diabetes mellitus with diabetic nephropathy; E78.5 Hyperlipidemia, unspecified; Z79.4 Long term (current) use of insulin; Z96.41 Presence of insulin pump (external) (internal); Z46.81 Encounter for fitting and adjustment of insulin pump | CPT/HCPCS: 99211 ==

== ENCOUNTER 2025-07-24 08:38 | Outpatient (REF) | payer MEDICARE, SELFPAY ==
--- OUTSIDE RECORDS SUMMARY | 2025-07-24 08:58 | XMS_ITS | Encounter Summary ---
Author Organization [facility] Address [address] [place] [address] Care Team Providers Care Repair Cameraman Name Role Phone Clyde Whitaker MD Primary Care Provider Parker hopkins Encounter Details Date Type Department Care Team Description 05/21/2017 Business Doc Medical Records [address] [place] [id number] Abstract, Provider Social History Tobacco Use Types Packs/Day Years Used Date Smoking Tobacco: Former Cigarettes Q uit: 02/25/2014 Alcohol Use Standard Drinks/Week Comments Yes 0 (1 standard drink = 0.6 oz pur e alcohol) one a year Sex Assigned at Date Recorded Not on file documented as of this encounter Plan of Treatment Not on file documented as of this encounter Visit Diagnoses Not on filedocumented in this encounter Care Teams Repair Cameraman Relationship Specialty Start Date End Date Clyde Whitaker MD PCP - General Internal Medicine 02/25/17 documented as of this encounter
--- OUTSIDE RECORDS SUMMARY | 2025-07-24 08:58 | XMS_ITS | Clinical Summary ---
Author Organization [facility] Address [address] [place] [address] Care Team Providers Care Homicide Squad Commanding Officer Name Role Phone Clyde Whitaker MD Primary Care Provider Parker iltyshawn Medications Medication Sig Dispensed Refills Start Date End Date Status insulin lispro (HUMALOG) 100 UNIT/ML injection Inject into the skin continuous. Via insulin pump 0 02/25/2017 Active lisinopril (PRINIVIL,ZESTRIL) 10 MG tablet Take 1 Tab by mouth daily. 30 Tab 5 02/25/2017 Active trazodone (DESYREL) 50 MG tablet 0 02/25/2017 Active atorvastatin (LIPITOR) 40 MG tablet Take 1 Tab by mouth daily. 30 Tab 11 02/25/2017 Active Social History Tobacco Use Types Packs/Day Years Used Date Smoking Tobacco: Former Cigarettes Q uit: 02/25/2014 Alcohol Use Standard Drinks/Week Comments Yes 0 (1 standard drink = 0.6 oz pur e alcohol) one a year Sex Assigned at Date Recorded Not on file Last Filed Vital Signs Vital Sign Reading Time Taken Comments Blood Pressure 138/62 05/19/2017 9:02 AM EDT Pulse 66 05/19/2017 9:02 AM EDT Temperature 36.4 C (97.6 F) 05/19/2017 7:52 AM EDT Respiratory Rate 16 05/19/2017 9:02 AM EDT Oxygen Saturation 98% 05/19/2017 9:02 AM EDT Inhaled Oxygen Concentration - - Weight 73.5 kg (162 lb) 05/19/2017 7:52 AM EDT Height 167.6 cm (5' 6 ) 05/19/2017 7:52 AM EDT Body Mass Index 26.15 05/19/2017 7:52 AM EDT Plan of Treatment Health Maintenance Due Date Last Done Comments Covid-19 Vaccine (#1) 1945 HEPATITIS C SCREENING 1965 TOBACCO CHECK/ADVISE 1965 DTAP/TDAP/TD (1 - Tdap) 1966 CHOLESTEROL SCREENING 1967 MAMMOGRAM 1987 SHINGLES VACCINE (1 of 2) 1997 BONE DENSITY SCREENING 2012 PNEUMOCOCCAL VACCINE (1 - PCV) 2012 BMI CHECK/ADVISE 09/14/2024 INFLUENZA (#1) 2025 Care Teams Homicide Squad Commanding Officer Relationship Specialty Start Date End Date Clyde Whitaker MD PCP - General Internal Medicine 02/25/17
--- OUTSIDE RECORDS SUMMARY | 2025-07-24 08:58 | XMS_ITS | Encounter Summary ---
Author Organization [facility] Address [address] [place] [address] Care Team Providers Care Aircraft Structure Mechanic Name Role Phone Clyde Whitaker MD Primary Care Provider Parker hopkins Encounter Details Date Type Department Care Team Description 02/25/2017 Orders Only Gastroenterology - [address] [id number] Alisia Quesada MD Social History Tobacco Use Types Packs/Day Years Used Date Smoking Tobacco: Former Cigarettes Q uit: 02/25/2014 Alcohol Use Standard Drinks/Week Comments No 0 (1 standard drink = 0.6 oz pur e alcohol) Sex Assigned at Date Recorded Not on file documented as of this encounter Plan of Treatment Not on file documented as of this encounter Visit Diagnoses Not on filedocumented in this encounter Care Teams Aircraft Structure Mechanic Relationship Specialty Start Date End Date Clyde Whitaker MD PCP - General Internal Medicine 02/25/17 documented as of this encounter
--- OUTSIDE RECORDS SUMMARY | 2025-07-24 08:58 | XMS_ITS | Clinical Summary ---
Author Organization [facility] Address [address] [facility] [address] [place] [address] Phone Care Team Providers Care Rehab Spec Name Role Phone Nola Landers MD Primary [...] VACCINE (#1) 2025 COVID-19 VACCINE ( - 2024-2 6 season) 2025 HEPATITIS A VACCINES Aged Out [...] topic Medical Devices Not on file [place] [address] [place] [address] MEDICARE PPO BLUE REPLACEMENT [facility] MEDICARE PPO BLUE REPLACEMENT [facility] MEDICARE PPO BLUE [place] [address] [place] [address] MEDICARE PPO BLUE [place] [address] [place] [address] MEDICARE PPO BLUE REPLACEMENT Care Teams Rehab Spec Relationship Specialty Start Date End Date Nola Landers MD [address] [place] [phone] PCP - General Internal Medicine 12/11/23 Additional Source Comments The information contained in this document represents components of the legal health record. It is not the complete legal health record.[facility]
[2025-07-24 12:28] LABS: Cholesterol 190 mg/dL (<200); HDL Cholesterol 89 mg/dL (>40); Triglycerides 66 mg/dL (<150)
== END 2025-07-24 08:39 | disposition home or self-care (01) ==
LOC: HO.WFDLDS 08:38
PROVIDERS: Visit Provider Internal Medicine Endocrinology, Diabetes & Metabolism
DX: E10.21 Type 1 diabetes mellitus with diabetic nephropathy (principal)
CPT/HCPCS: 36415; 80061; 82043; 82570

== ENCOUNTER 2025-07-27 09:55 | Outpatient (AMB) | payer MEDICARE, SELFPAY ==
[2025-07-27 09:57] VITALS: BP 132/62; PULSE 72; O2SAT 99; BMI 26.2
--- NOTE | 2025-07-27 09:57 | MHC.OFFVIS ---
Vital Signs 07/27/25 09:57 Height 5 ft 5 in Weight 157 lb 6.561 oz BMI 26.2 BP 132/62 Blood Pressure Location Lt brachial Position Sitting Pulse 72 Pulse Source Pulse Oximeter Pulse Oximetry (%) 99 Oxygen Delivery Method Room Air Intake Visit Reasons: T1DM Intake Note: Patient presents for TIDM follow up.? Last diabetic eye exam:May, Last podiatry Visit:Does not see a [facility]. Random glucose:147 A1C: Quality Assurance Project Manager Required: No Allergies No Known Allergies Allergy (Verified 07/27/25 10:08) Medication List - Last Reconciled 07/27/25 by Cali Banegas MD acetone (urine) test (Ketone Urine Test strips) T.i.d. as directed for glucose over 250, illness, nausea or vomiting atorvastatin 40 mg PO DAILY blood-glucose sensor (PlumTV G7 Sensor device) USE DAILY DIRECTED TO MONITOR BLOOD SUGARS, PLACE ON SKIN, REPLACE EVERY 10 DAYS blood-glucose,certified green building engineer,cont (Dexcom G7 Group Therapy Counselor) Use daily As directed to monitor blood sugars dasiglucagon (Zegalogue) 0.6 mg (0.6 mL) subcut ONCE insulin glargine (Lantus Solostar U-100 Insulin) 17 units (0.17 mL) subcut ONCE PRN 30 days MDD 17 units insulin syringe-needle U-100 (BD Insulin Syringe Ultra-Fine) qid for pump failure or glucose correction 4 times daily when pump fails or if needing to check sensor for correct numbers lactulose 20 grams (30 mL) PO BEDTIME losartan 25 mg PO DAILY Novolog U-100 Insulin aspart (insulin aspart U-100) up to 60 units daily subcutaneously daily; via continuous insulin pump 90 days NS pen needle, diabetic (BD Ultra-Fine Romina Pen Needle) As directed qid prn pump failure sertraline 25 mg PO DAILY trazodone 200 mg PO BEDTIME PRN HPI Comments Details: 80 YO female with type 1 diabetes is seen in follow up. Initially diagnosed with T1DM at approximately age 38. Previous RX: Backup insulin pump failure plan: Lantus 17 units 150 no novolog 150-200 2 units 201-250 4 units 251-300 6 units over 300 8 units Dexcom average glucose: 152 14 day continuous glucose monitor report reviewed Glucose Managment indicator 7.0 % Days with CGM data 95.7 % TIme in ranges: 8 % very high (above 250) 14 % high ?(181-250) 69 % in range ?(70-180] 1 % low (69-55) 0 % ?very low (below 54) She is having some postprandial excursions from not entering her carbohydrates prior to the meal. She is entering in 52 carbs per day Interpretation: She is in control IQ 97% of the time 59% 16.5 units basal 41% 11.7 bolus total daily dose 27.52 with 61% basal and 39% bolus Treats lows with regular Coke followed by peanut butter crackers if needed Checks sugar after to ensure it is rising. Follows the rule of 15's. Family history of autoimmunity in [] Has pancreatic insufficiency: not on creon as she has side effects from this. Denies retinopathy: Has eyes checked yearly, last eye exam don has recently had neuropathy. Positive intermittent numbness, no tingling pain or cramping in the lower extremities last foot exam today self care does not see podiatry Has Nephropathy, on ARB 02/29/24: Microalbumin <5.0 eGFR 59 Has HLD, on statin. Last LDL 87 measured on 02/29/24 Denies history of CAD. She reports fleeting lasting just a few sec pain in the right breast, occasionally left sided without radiation to jaw or arm. Generally occurs when she is sitting down. She had been contact her PCP to discuss this Has had diabetes education. Diet/Carb counting:has had instruction Weight: stable Denies prior episodes of DKA. Tandem T- Slim X2 12 AM? to 6 AM? 0.55 units / hr 6A to 12 A 0.65 Bolus setting Insulin Carbohydrate Ratio (s) 12 AM? to 6 AM?? 1:15 6A to 12 A = 1:14 Correction Factor / Sensitivity Factor 12 AM? to 12 AM? 1:55 Active Insulin Time:? 4.5 hours basal 3.5 hours Target(s): 12 AM? to 12 AM? 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 Dyslipidemia Type 1 diabetes mellitus with diabetic nephropathy, with long-term current use of insulin Surgical History History of section Hx of colonoscopy Hx of appendectomy Family History Brother Diabetes Father Heart attack Mother Lung cancer Social History Household Members: Spouse Alcohol intake: current Alcohol intake frequency: holidays/special occasions only Patient Tobacco Use Status: Former Tobacco user Tobacco use type: Cigarette Physical Exam Vital Signs: Last Vital Signs Pulse 72 07/27/25 09:57 BP 132/62 07/27/25 09:57 Pulse Ox 99 07/27/25 09:57 Oxygen Delivery Method Room Air 07/27/25 09:57 BMI result Body Mass Index 26.2 Absence of Cushingoid features. Absence of acromegalic features. Neck exam reveals nl size thyroid about 15 gms. No thyroid nodules palpable. No carotid bruits present. Lungs CTA. Heart S1 S2, Reg R/R. No M/R/ G. Skin exam reveals absence of vitiligo or acanthosis nigricans. Abdominal exam reveals Soft NT/ND with NA BS. No organomegaly present. Neck Other: . Extrem Other: Visual exam of foot performed. No ulcerations or open lesions. No onchomycosis, no callouses.Pulses 2 + distally Sensation intact to monofilament exam. Vibratory sensation sensed is intact with 128 Hz tuning fork Results AMB Hemoglobin A1c AMB Hemoglobin A1c 7.3 % Last Edit by Symone Cummings CMA on 07/27/25 10:40 Results Reviewed Results Reviewed: Laboratory Last Values Glucose (Clinic) 147 mg/dL (60-115) H 07/27/25 10:18 Assessment & Plan Assessment & Plan (1) Type 1 diabetes mellitus with diabetic nephropathy, with long-term current use of insulin: Code(s): E10.21 - Type 1 diabetes mellitus with diabetic nephropathy Category: Medical Plan: This 79-year-old white female with a history of pancreaolytic diabetes being managed with a tandem T slim X 2 pump with good glycemic control and known microvascular complications namely nephropathy. Plan is to tighten the insulin: Carbohydrate at 6 a to 01:12 . We will recheck lipid profile and microalbumin to creatinine ratio. Will have patient follow up in 3 months Orders: Orders AMB Hemoglobin A1c Today E10.21 - Type 1 diabetes mellitus with diabetic nephropathy, E10.9 - Type 1 diabetes mellitus without complications Coding Level of Care Code Est Pt Level 4 (71382) Complex EM visit Add On G2211 Diagnoses Type 1 diabetes mellitus with diabetic nephropathy, with long-term current use of insulin E10.21
[2025-07-27 10:24] LABS: Glucose, Whole Blood 147 mg/dL (60-115)
--- OUTSIDE RECORDS SUMMARY | 2025-07-27 11:48 | XMS_ITS | Clinical Summary ---
Author Organization [facility] Address [address] [place] [id number] Phone Care Team Providers Care Cable Cutter And Swager Name Role Phone Nola Landers MD Primary [...] topic Medical Devices Not on file [place] [address] [place] [address] MEDICARE PPO BLUE REPLACEMENT [facility] MEDICARE PPO BLUE REPLACEMENT [facility] MEDICARE PPO [place] [address] [place] [address] MED[address] PPO [place] [address] [place] [address] MEDICARE PPO BLUE REPLACEMENT Care Teams Cable Cutter And Swager Relationship Specialty Start Date End Date Nola Landers MD [address] [place] [id number] PCP - General Internal Medicine 12/11/23 Additional Source Comments The information contained in this document represents components of the legal health record. It is not the complete legal health record.[facility]
--- OUTSIDE RECORDS SUMMARY | 2025-07-27 11:48 | XMS_ITS | Encounter Summary ---
Author Organization [facility] Address [address] [place] [address] Care Team Providers Care Seasoning Mixer Name Role Phone Clyde Whitaker MD Primary Care Provider Parker hopkins Encounter Details Date Type Department Care Team Description 02/25/2017 Orders Only Gastroenterology - [address] [id number] Alisia Quesada MD Social History Tobacco Use [...] on filedocumented in this encounter Care Teams Seasoning Mixer Relationship Specialty Start Date End Date Clyde Whitaker MD PCP - General Internal Medicine 02/25/17 documented as of this encounter
--- OUTSIDE RECORDS SUMMARY | 2025-07-27 11:48 | XMS_ITS | Clinical Summary ---
Author Organization [facility] Address [address] [place] [address] Care Team Providers Care Buffing Wheel Inspector Name Role Phone Clyde Whitaker MD Primary [...] CHECK/ADVISE 09/14/2024 INFLUENZA (#1) 2025 Care Teams Buffing Wheel Inspector Relationship Specialty Start Date End Date Clyde Whitaker MD PCP - General Internal Medicine 02/25/17
== END 2025-07-27 10:55 | disposition home or self-care (01) ==
LOC: HO.ENCR 09:56
PROVIDERS: PCP Internal Medicine; Visit Provider Internal Medicine Endocrinology, Diabetes & Metabolism
DX: E10.21 Type 1 diabetes mellitus with diabetic nephropathy (principal); E10.9 Type 1 diabetes mellitus without complications
CPT/HCPCS: 99214; G2211

== ENCOUNTER → 2025-07-27 09:55 | Outpatient (BNVA) | payer MEDICARE, SELFPAY | PROVIDERS: PCP Internal Medicine; Visit Provider Internal Medicine Endocrinology, Diabetes & Metabolism | DX: E10.21 Type 1 diabetes mellitus with diabetic nephropathy (principal); E10.649 Type 1 diabetes mellitus with hypoglycemia without coma; Z79.4 Long term (current) use of insulin; Z96.41 Presence of insulin pump (external) (internal) | CPT/HCPCS: 82947; 83036; 99212 ==